=== PATIENT | female | born 1985 | race Caucasian/White ===

== ENCOUNTER 2017-01-06 17:49 | Emergency (ER) | payer MEDICAID ==
--- NOTE | 2017-01-06 19:27 | ER Document Report ---
HPI - HPI Patient complains to provider of: right shoulder pain Onset: Other - 2 days ago Quality of pain: Achy Severity: Severe Pain Level: 5 Context: Patient presents to the emergency department with complaints of right shoulder arm pain. She reports she has a history of shoulder surgery back in [place] [address] Cannon. She reports her shoulder kept becoming dislocated, that is why she had surgery. Patient reports 2 days ago she was walking out of work and thought someone was following her so she jerked her shoulder really quick and has had pain since that time. She reports the pain is throbbing and goes all the way down to her hand. She reports she's been taking her tramadol without relief of symptoms. Associated Symptoms: None Exacerbated by: Movement Relieved by: Denies Similar symptoms previously: Yes Recently seen / treated by doctor: No - REPRODUCTIVE Reproductive: DENIES: : - DERM Skin Color: Normal Past Medical History - General Information source: Patient Last Menstrual Period: 12/23/16 - Social History Smoking Status: Current Every Day Smoker Cigarette use (# per day): Yes Chew tobacco use (# tins/day): No Frequency of alcohol use: None Drug Abuse: None Occupation: [employer] Family History: None Patient has suicidal ideation: No Patient has homicidal ideation: No - Past Medical History Cardiac Medical History: Denies: Hx Coronary Artery Disease, Hx Heart Attack, Hx Hypertension Pulmonary Medical History: Denies: Hx Asthma, Hx Bronchitis, Hx COPD, Hx Pneumonia Neurological Medical History: Denies: Hx Cerebrovascular Accident, Hx Seizures Renal/ Medical History: Denies: Hx Peritoneal Dialysis Musculoskeltal Medical History: Denies Hx Arthritis, Reports Hx Musculoskeletal Trauma - shoulders dislocate, torn muscle Psychiatric Medical History: Reports: Hx Anxiety Denies: Hx Depression Past Surgical History: Reports: Hx Cholecystectomy, Hx Orthopedic Surgery - both knees, rt shoulder, Hx Tonsillectomy. Denies: Hx Hysterectomy - Immunizations Immunizations up to date: Yes Hx Diphtheria, Pertussis, Tetanus Vaccination: Yes Vertical Provider Document - CONSTITUTIONAL Agree With Documented VS: Yes Exam Limitations: No Limitations General Appearance: WD/WN, Mild Distress - Winces with passive and active movement of the right arm - INFECTION CONTROL TRAVEL OUTSIDE OF THE [place] IN LAST 30 DAYS: No - HEENT HEENT: Atraumatic, Normocephalic - NECK Neck: Normal Inspection, Supple - RESPIRATORY Respiratory: Breath Sounds Normal, No Respiratory Distress O2 Sat by Pulse Oximetry: 96 - CARDIOVASCULAR Cardiovascular: Regular Rate - MUSCULOSKELETAL/EXTREMETIES Musculoskeletal/Extremeties: MAEW, FROM, Tender - right upper arm ttp, no obvious deformity, good radial pulse. Brisk Cap refill no swelling no erythema no warmth - NEURO Level of Consciousness: Awake, Alert, Appropriate Motor/Sensory: No Motor Deficit - DERM Integumentary: Warm, Dry Adult Front & Back Diagram: 1 - c/o ttp Course - Re-evaluation Re-evalutation: 01/06/17 19:24 pt updated on pending xray - Vital Signs Vital signs: Temp Pulse Resp BP Pulse Ox 98.2 F 86 16 120/76 96 01/06/17 18:08 01/06/17 18:08 01/06/17 18:08 01/06/17 18:08 01/06/17 18:08 - Diagnostic Test Radiology reviewed: Image reviewed, Reports reviewed - IMPRESSION: NEGATIVE STUDY OF THE RIGHT SHOULDER. NO RADIOGRAPHIC EVIDENCE OF ACUTE INJURY. Discharge - Discharge Clinical Impression: Right shoulder pain Condition: Stable Disposition: HOME, SELF-CARE Instructions: Use of Drii-Unb-Btedqrg Ibuprofen ([facility]), Ultram ([facility]) Additional Instructions: *You have been evaluated for right shoulder pain *Apply lidocaine patches as prescribed *Rest/Ice/Elevate *Follow up with orthopedics for continued pain-call for an appointment *Take your pain medication as prescribed *Return to ED for worsening condition, changes, needs Prescriptions: Lidocaine [Lidoderm 5% (700 mg) Transdermal Patch] 1 patch TP DAILY #30 adh..patch Forms: Return to Work Referrals: TIGRE PHELPS MD [Primary Care Provider] - Follow up in 3-5 days
[2017-01-06 20:33] VITALS: BP 118/76
== END 2017-01-06 20:30 | disposition home or self-care (01) ==
LOC: ER 17:49
DX: M25.511 Pain in right shoulder (principal); Z98.890 Other specified postprocedural states; F17.210 Nicotine dependence, cigarettes, uncomplicated
CPT/HCPCS: 99283

== ENCOUNTER 2017-05-10 14:27 | Emergency (ER) | payer MEDICAID ==
[2017-05-10] MEDS ORDERED: TRIAMCINOLONE ACETONIDE INJ 40 MG/1 ML VIAL INJ ONE (15:16)
[2017-05-10] MEDS ORDERED: BUPIVACAINE HCL 0.75% INJ/PF (7.5 MG/1 ML) 10 ML SDV INJ ONE (15:17)
--- NOTE | 2017-05-10 15:23 | ER Document Report ---
HPI - HPI Pain Level: 5 Notes: Patient is a 31-year-old female presents the ED complaining of bilateral lateral elbow pain 1-2 weeks. 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 Patient states that she has been having issues gripping and holding onto items because of a feeling of loss of strength. Patient states that she has a soreness pain to her elbows. Patient states on occasion it feels like the pain will radiate down her forearm. Patient states that she does have a history of carpal tunnel syndrome without any release in the past. She has tried [id number] meds with minimal relief and conservative measures without any improvement. Denies any other significant past medical history. Denies any headache, fever, URI, sore throat, chest pain , palpitations, syncope, cough, shortness of breath, wheeze, dyspnea, abdominal pain, nausea/vomiting/diarrhea, muscle paralysis, or rash. - ROS Notes: REVIEW OF SYSTEMS: CONSTITUTIONAL : Denies fever, chills, or sweats. Denies recent illness. EENT: Denies eye, ear, throat, or mouth pain or symptoms. Denies nasal or sinus congestion or discharge. Denies throat, tongue, or mouth swelling or difficulty swallowing. CARDIOVASCULAR: Denies chest pain. Denies palpitations or racing or irregular heart beat. Denies ankle edema. RESPIRATORY: Denies cough, cold, or chest congestion. Denies shortness of breath, difficulty breathing, or wheezing. GASTROINTESTINAL: Denies abdominal pain or distention. Denies nausea, vomiting , or diarrhea. Denies blood in vomitus, stools, or per rectum. Denies black, tarry stools. Denies constipation. GENITOURINARY: Denies difficulty urinating, painful urination, burning, frequency, blood in urine, or discharge. MUSCULOSKELETAL: see hpi SKIN: Denies rash, lesions or sores. NEUROLOGICAL: Denies confusion or altered mental status. Denies passing out or loss of consciousness. Denies dizziness or lightheadedness. Denies headache. Denies weakness or paralysis or loss of use of either side. Denies problems with gait or speech. Denies sensory loss, numbness, or tingling. ALL OTHER SYSTEMS REVIEWED AND NEGATIVE. Dictation was performed using [employer] voice recognition software - CARDIOVASCULAR Cardiovascular: DENIES: Chest pain - REPRODUCTIVE Reproductive: DENIES: : - DERM Skin Color: Normal Past Medical History - Social History Smoking Status: Current Every Day Smoker Family History: None - Past Medical History Cardiac Medical History: Denies: Hx Coronary Artery Disease, Hx Heart Attack, Hx Hypertension Pulmonary Medical History: Denies: Hx Asthma, Hx Bronchitis, Hx COPD, Hx Pneumonia Neurological Medical History: Denies: Hx Cerebrovascular Accident, Hx Seizures Renal/ Medical History: Denies: Hx Peritoneal Dialysis Musculoskeltal Medical History: Denies Hx Arthritis, Reports Hx Musculoskeletal Trauma - shoulders dislocate, torn muscle Psychiatric Medical History: Reports: Hx Anxiety Denies: Hx Depression Past Surgical History: Reports: Hx Cholecystectomy, Hx Orthopedic Surgery - both knees, rt shoulder, Hx Tonsillectomy. Denies: Hx Hysterectomy - Immunizations Immunizations up to date: Yes Hx Diphtheria, Pertussis, Tetanus Vaccination: Yes Vertical Provider Document - CONSTITUTIONAL Agree With Documented VS: Yes Notes: PHYSICAL EXAMINATION: GENERAL: Well-appearing, well-nourished and in no acute distress. NECK: Normal range of motion, supple without lymphadenopathy. Non-tender. LUNGS: Breath sounds clear to auscultation bilaterally and equal. No wheezes rales or rhonchi. HEART: Regular rate and rhythm without murmurs, rubs, gallops. Musculoskeletal: Elbows b/l: FROM to passive/active. Strength 5+/5. Neg tinel to cubital tunnel. + tenderness to the lateral epicondyle points b/l. No erythema, swelling, ecchymosis, or deformity noted. No bony tenderness. N/V intact distal. Extremities: No cyanosis, clubbing, or edema b/l. Peripheral pulses 2+. Capillary refill less than 3 seconds. NEUROLOGICAL: Normal speech, normal gait. Normal sensory, motor exams PSYCH: Normal mood, normal affect. SKIN: Warm, Dry, normal turgor, no rashes or lesions noted. - INFECTION CONTROL TRAVEL OUTSIDE OF THE [place] IN LAST 30 DAYS: No - RESPIRATORY O2 Sat by Pulse Oximetry: 98 Course - Re-evaluation Re-evalutation: 05/10/17 15:55 Patient is an afebrile, well-hydrated, 31-year-old female who presents the ED with bilateral lateral epicondylitis. Vitals are stable. PE otherwise unremarkable at this time. Low suspicion for any septic joint, sepsis, necrotizing fasciitis, tenosynovitis, or fracture. Patient is aware that her condition can change from initial presentation and she needs to monitor symptoms closely and seek medical attention if any acute changes. Listed treatment options with the patient. Patient requested the steroid injections. Kenalog and Sensorcaine were injected into the lateral epicondyle areas bilaterally without any complications or blood loss. Patient's pain immediately improved corresponding to appropriate placement. I will send the patient home with a prescription for naproxen and Voltaren gel. Conservative measures otherwise for symptoms. Recheck with your PCM this week. Consider consult with physical therapy/orthopedics. Return to the ED with any worsening/ concerning symptoms otherwise as reviewed in discharge. Patient is in agreement. - Vital Signs Vital signs: Temp Pulse Resp BP Pulse Ox 97.5 F 69 18 115/65 98 05/10/17 14:33 05/10/17 14:33 05/10/17 14:33 05/10/17 14:33 05/10/17 14:33 Procedures - Additional Procedures trigger point injection Time performed: 15:45 Additional Procedures: Other - lateral epicond b/l injection with kenalog/ sensorcaine. Verbal consent obtained after risks/benefits/procedure reviewed. skin cleansed with iodine and alcohol swabs 1cc 40mg kenalog combined with 1.5cc sensorcaine 0.75% placed with 25g needle in 5cc syringe. pt tolerated procedure well w/o complications or blood loss bandaides placed Discharge - Discharge Clinical Impression: Lateral epicondylitis of both elbows Condition: Stable Disposition: HOME, SELF-CARE Instructions: Joint Steroid Injection ([facility]), Tennis Elbow (Lateral Epicondylitis) ([facility]) Additional Instructions: Rest, Ice, Compression, Elevation Tylenol/ibuprofen as needed Light stretches daily Strength exercises as able Moist heat and massage may help F/u with your PCP in 2-3 days for a recheck Consider consult(s) with Orthopedics/physical therapy for ongoing/worsening symptoms Return to the ED with any worsening symptoms and/or development of fever, headache, chest pain, palpitations, syncope, shortness of breath, trouble breathing, abdominal pain, n/v/d, muscle weakness/paralysis, numbness/tingling, swelling, redness, or other worsening symptoms that are concerning to you. Prescriptions: Diclofenac Sodium [Voltaren] 4 gm TP QID PRN #100 gel..gm. PRN Reason: Naproxen 500 mg PO BID PRN #30 tablet PRN Reason: Referrals: [facility] [Provider Group] - Follow up as needed
[2017-05-10 16:14] VITALS: BP 127/91
== END 2017-05-10 16:11 | disposition home or self-care (01) ==
LOC: ER 14:27
PROC: 3E0233Z Introduction of Anti-inflammatory into Muscle, Percutaneous Approach (ICD-10-PCS; principal; 2017-05-10)
PROC: 3E023BZ Introduction of Anesthetic Agent into Muscle, Percutaneous Approach (ICD-10-PCS; 2017-05-10)
DX: M77.11 Lateral epicondylitis, right elbow (principal); M77.12 Lateral epicondylitis, left elbow; M25.521 Pain in right elbow; M25.522 Pain in left elbow; F17.200 Nicotine dependence, unspecified, uncomplicated
CPT/HCPCS: 99283; 96374; 20552; J3490 ×2

== ENCOUNTER 2017-05-23 10:21 | Emergency (ER) | payer MEDICAID ==
[2017-05-23] MEDS ORDERED: KETOROLAC TROMETHAMINE INJ/PF 30 MG/1 ML SDV IV ONE (11:31)
[2017-05-23] MEDS ORDERED: DIPHENHYDRAMINE HCL 50 MG/ML VIAL IV ONE (11:32)
[2017-05-23] MEDS ORDERED: DEXAMETHASONE SOD PHOS INJ 10 MG/1 ML VIAL IV ONE (11:32)
[2017-05-23] MEDS ORDERED: METOCLOPRAMIDE HCL INJ/PF 10 MG/2 ML SDV IV ONE (11:33)
--- NOTE | 2017-05-23 11:36 | ER Document Report ---
ED Headache - General Chief Complaint: Headache Stated Complaint: HEADACHE Time Seen by Provider: 05/23/17 11:21 Notes: pt c/o frontal/temporal headache x 2h. pain is escalating. pulsatile. + photosensitivity. + nausea, no vomiting. no fever. no neck pain/stiffness similar headache 2 wks ago. pt admits to increased stress lately TRAVEL OUTSIDE OF THE [place] IN LAST 30 DAYS: No - HPI Onset: This morning Onset was: Gradual Timing: Worse Quality of pain: Stabbing, Throbbing Pain Level: 5 Preceding symptoms: Typical of prior aura(s) Associated symptoms: Nausea/vomiting. denies: Dizzy, Double/blurred vision, Fever, Motor/sensory loss to arm, Neck pain, Stiff neck Exacerbated by: Light, Movement Similar symptoms previously: Yes Recently seen / treated by doctor: Yes - 2 wks ago - Related Data Allergies/Adverse Reactions: Sulfa (Sulfonamide Antibiotics) Allergy (Verified 05/23/17 10:25) Hives adhesive tape Adverse Reaction (Intermediate, Verified 05/23/17 10:25) SKIN IRRITATION/REDNESS Past Medical History - General Information source: Patient - Social History Smoking Status: Current Every Day Smoker Chew tobacco use (# tins/day): No Frequency of alcohol use: None Drug Abuse: None Lives with: Family Family History: None - Past Medical History Cardiac Medical History: Denies: Hx Coronary Artery Disease, Hx Heart Attack, Hx Hypertension Pulmonary Medical History: Denies: Hx Asthma, Hx Bronchitis, Hx COPD, Hx Pneumonia Neurological Medical History: Denies: Hx Cerebrovascular Accident, Hx Seizures Renal/ Medical History: Denies: Hx Peritoneal Dialysis Musculoskeltal Medical History: Denies Hx Arthritis, Reports Hx Musculoskeletal Trauma - shoulders dislocate, torn muscle Psychiatric Medical History: Reports: Hx Anxiety Denies: Hx Depression Past Surgical History: Reports: Hx Cholecystectomy, Hx Orthopedic Surgery - both knees, rt shoulder, Hx Tonsillectomy. Denies: Hx Hysterectomy - Immunizations Immunizations up to date: Yes Hx Diphtheria, Pertussis, Tetanus Vaccination: Yes Review of Systems - Review of Systems Constitutional: No symptoms reported EENT: No symptoms reported Cardiovascular: No symptoms reported Respiratory: No symptoms reported Gastrointestinal: No symptoms reported Genitourinary: No symptoms reported Female Genitourinary: No symptoms reported Musculoskeletal: No symptoms reported Skin: No symptoms reported Hematologic/Lymphatic: No symptoms reported Neurological/Psychological: See HPI Physical Exam - Vital signs Vitals: Temp Pulse Resp BP Pulse Ox 97.8 F 73 16 122/71 100 05/23/17 10:25 05/23/17 10:25 05/23/17 10:25 05/23/17 10:25 05/23/17 10:25 Interpretation: Normal - General General appearance: Alert, Anxious In distress: Mild - uncomfortable - HEENT Head: Normocephalic, Atraumatic Eyes: Normal Conjunctiva: Normal Extraocular movements intact: Yes Pupils: PERRL Tympanic membrane: Normal Pharynx: Normal. No: Potential airway comprom. Neck: Supple - + suboccipital trapezius tenderness - Respiratory Respiratory status: No respiratory distress Chest status: Nontender Breath sounds: Normal Chest palpation: Normal - Cardiovascular Rhythm: Regular Heart sounds: Normal auscultation Murmur: No - Abdominal Inspection: Normal Distension: No distension Bowel sounds: Normal Tenderness: Nontender Organomegaly: No organomegaly - Back Back: Normal, Nontender - Extremities General upper extremity: Normal inspection, Nontender, Normal color, Normal ROM , Normal temperature General lower extremity: Normal inspection, Nontender, Normal color, Normal ROM , Normal temperature, Normal weight bearing. No: Too's sign - Neurological Neuro grossly intact: Yes Cognition: Normal Orientation: AAOx4 Cruz Coma Scale Eye Opening: Spontaneous Cruz Coma Scale Verbal: Oriented Cruz Coma Scale Motor: Obeys Commands Cruz Coma Scale Total: 15 Speech: Normal Motor strength normal: LUE, RUE, LLE, RLE Sensory: Normal - Psychological Associated symptoms: Normal affect, Normal mood - Skin Skin Temperature: Warm Skin Moisture: Dry Skin Color: Normal Course - Re-evaluation Re-evalutation: 05/23/17 11:37 pt is a healthy 31 yo female c/o 2h hx/o throbbing headache which started while working at [employer]. pt has had similar headaches in the past. pt has not taken any OTC for headache. low suspicion for meningitis, subdural bleed, CVA. pt is neurologically intact. VSS, afebrile 05/23/17 12:38 pt reports headache has improved. no neuro deficits. pt stable for discharge - Vital Signs Vital signs: Temp Pulse Resp BP Pulse Ox 97.8 F 73 16 122/71 100 05/23/17 10:25 05/23/17 10:25 05/23/17 10:25 05/23/17 10:25 05/23/17 10:25 Discharge - Discharge Clinical Impression: Headache Qualifiers: Headache type: unspecified Headache chronicity pattern: acute headache Intractability: not intractable Qualified Code(s): R51 - Headache Condition: Stable Disposition: HOME, SELF-CARE Instructions: Use of Diphenhydramine, Headache ([facility]), Reglan ([facility]), Toradol Injection ([facility]) Additional Instructions: if your headache returns, please take 2 Benadryl tablets + 1 phenergan tablet follow up with your primary care if headache persists Prescriptions: Promethazine HCl [Phenergan 25 mg Tablet] 25 mg PO Q6H PRN #20 tablet PRN Reason: Forms: Return to Work Referrals: TIGRE PHELPS MD [Primary Care Provider] - Follow up as needed
[2017-05-23 13:59] VITALS: BP 110/58
== END 2017-05-23 12:45 | disposition home or self-care (01) ==
LOC: ER 10:21
DX: R51 Headache (principal); F17.200 Nicotine dependence, unspecified, uncomplicated
CPT/HCPCS: 99283; 96374; 96375; J1200; J1885; J2765; J1100

== ENCOUNTER 2017-09-25 08:10 | Emergency (ER) | payer MEDICAID ==
--- NOTE | 2017-09-25 09:46 | ER Document Report ---
ED GI/ - General Chief Complaint: Vomiting Stated Complaint: VOMITING Time Seen by Provider: 09/25/17 09:04 Mode of Arrival: Ambulatory Information source: Patient Notes: 32-year-old female presents to ED for chronic nausea vomiting 2 weeks. She states she has only vomited one time today and she had a coffee before she also is drinking a [employer] soda right now Pulse in the pivot of it was 110. I rechecked her pulse and pulse ox while examining her her pulse ox is 99% and her pulse is 88. Patient states she has been nausea and vomiting cannot keep anything down. When asked to her meantime she has vomited today she said 1. As heavy time she vomited yesterday and was none. She states she thinks she may be because her last menstrual period was August 14. TRAVEL OUTSIDE OF THE [place] IN LAST 30 DAYS: No - HPI Patient complains to provider of: Missed/Late menses, Vomiting Onset: Other Timing/Duration: Intermittent - 2 weeks Quality of pain: Achy - Body aches Severity at maximum: Moderate Severity in ED: Moderate Pain Level: 3 Location: Other - Body aches Vaginal bleeding (Compared to normal period): None Menstrual period history: Missed LMP: 08/14/2017 Associated symptoms: Nausea, Vomiting, Other - Runny nose congestion postnasal drip Exacerbated by: Movement Relieved by: Denies Similar symptoms previously: Yes Recently seen / treated by doctor: No - Related Data Allergies/Adverse Reactions: Sulfa (Sulfonamide Antibiotics) Allergy (Verified 09/25/17 09:13) Hives adhesive tape Adverse Reaction (Intermediate, Verified 09/25/17 09:13) SKIN IRRITATION/REDNESS Past Medical History - General Information source: Patient - Social History Smoking Status: Current Every Day Smoker Cigarette use (# per day): Yes - 6 cigarettes/day none last 3 days Chew tobacco use (# tins/day): No Smoking Education Provided: Yes - 4 minutes Frequency of alcohol use: None Drug Abuse: None Occupation: None Lives with: Alone - With small son Family History: Arthritis, COPD, CVA, DM, Hyperlipidemia, Hypertension, Malignancy. denies: CAD, Thyroid Disfunction Patient has suicidal ideation: No Patient has homicidal ideation: No - Past Medical History Cardiac Medical History: Reports: None Pulmonary Medical History: Reports: None Neurological Medical History: Reports: None Endocrine Medical History: Reports: None Renal/ Medical History: Reports: None Malignancy Medical History: Reports: None GI Medical History: Reports: None Musculoskeltal Medical History: Reports Hx Musculoskeletal Trauma - shoulders dislocate, torn muscle Psychiatric Medical History: Reports: Hx Anxiety, Hx Depression Traumatic Medical History: Reports: None Infectious Medical History: Reports: None Past Surgical History: Reports: Hx Adenoidectomy, Hx Cholecystectomy, Hx Oral Surgery, Hx Orthopedic Surgery - both knees, rt shoulder, Hx Tonsillectomy - Immunizations Immunizations up to date: Yes Hx Diphtheria, Pertussis, Tetanus Vaccination: Yes Review of Systems - Review of Systems Constitutional: Recent illness EENT: Nose congestion, Nose discharge, Sinus pressure, Sinus discharge Cardiovascular: No symptoms reported Respiratory: No symptoms reported Gastrointestinal: Nausea, Vomiting Genitourinary: No symptoms reported Female Genitourinary: No symptoms reported Musculoskeletal: No symptoms reported Skin: No symptoms reported Hematologic/Lymphatic: No symptoms reported Neurological/Psychological: No symptoms reported -: Yes All other systems reviewed and negative Physical Exam - Vital signs Vitals: Temp Pulse Resp BP Pulse Ox 98.0 F 110 H 16 114/66 96 09/25/17 08:35 09/25/17 08:35 09/25/17 08:35 09/25/17 08:35 09/25/17 08:35 Interpretation: Normal - General General appearance: Appears well, Alert - HEENT Head: Normocephalic, Atraumatic Eyes: Normal Pupils: PERRL Ears: Normal External canal: Normal Tympanic membrane: Normal Nasal: Purulent discharge, Swelling Mouth/Lips: Normal Mucous membranes: Normal Pharynx: Post nasal drainage Neck: Normal - Respiratory Respiratory status: No respiratory distress Chest status: Nontender Breath sounds: Normal Chest palpation: Normal - Cardiovascular Rhythm: Regular Heart sounds: Normal auscultation Murmur: No - Abdominal Inspection: Normal Distension: No distension Bowel sounds: Normal Tenderness: Nontender Organomegaly: No organomegaly - Back Back: Normal, Nontender - Extremities General upper extremity: Normal inspection, Nontender, Normal color, Normal ROM , Normal temperature General lower extremity: Normal inspection, Nontender, Normal color, Normal ROM , Normal temperature, Normal weight bearing. No: Too's sign - Neurological Neuro grossly intact: Yes Cognition: Normal Orientation: AAOx4 [place] Coma Scale Eye Opening: Spontaneous [place] Coma Scale Verbal: Oriented Cruz Coma Scale Motor: Obeys Commands [place] Coma Scale Total: 15 Speech: Normal Motor strength normal: LUE, RUE, LLE, RLE Sensory: Normal - Psychological Associated symptoms: Normal affect, Normal mood - Skin Skin Temperature: Warm Skin Moisture: Dry Skin Color: Normal Course - Re-evaluation Re-evalutation: 09/25/17 10:30 Discussed labs with patient and written report given to patient. Patient was treated with vitamin B6 for her nausea. Patient was also given water to drink which she is taking without any difficulty. Her pulse is well under 100 respirations even and nonlabored patient states she will follow up with [facility]. - Vital Signs Vital signs: Temp Pulse Resp BP Pulse Ox 98.0 F 88 16 114/66 99 09/25/17 08:35 09/25/17 09:29 09/25/17 08:35 09/25/17 08:35 09/25/17 09:29 - Laboratory Laboratory results interpreted by me: 09/25/17 09:09 Urine Ascorbic Acid 20 H Urine HCG, Qual POSITIVE H Discharge - Discharge Clinical Impression: URI (upper respiratory infection) Qualifiers: URI type: unspecified URI Qualified Code(s): J06.9 - Acute upper respiratory infection, unspecified Qualifiers: Weeks of gestation: less than 8 weeks Qualified Code(s): Z3A.01 - Less than 8 weeks gestation of Condition: Stable Disposition: HOME, SELF-CARE Additional Instructions: You are . care is best started as early in as possible. If you're unsure about continuing this , you should discuss this with your physician or with [facility] worker at [facility]. You should take only medications approved by your physician. Acetaminophen can safely be taken for minor pains. As a rule, medication for chronic conditions such as asthma or seizures can safely be continued. You should discuss with the physician every medicine you take. Any regular exercise program can be continued. Talk to your physician, however, before engaging in competitive or demanding sports. Alcohol, smoking, and "street drugs" are dangerous to your baby. Cocaine is especially dangerous. Don't use any illicit drugs! UPPER RESPIRATORY ILLNESS: You have a viral infection of the respiratory passages -- a "cold." This common infection causes nasal congestion, drainage, and often sore throat and cough. It is highly contagious. The disease usually lasts about 10 to 14 days. There is no "cure" for the viral infection -- it must run its course. If there is a complication, such as bacterial infection in the nose, sinuses, middle ear, or bronchial tubes, antibiotics may be required. The antibiotics won't affect the virus. Drink plenty of fluids. A humidifier may help. An expectorant medication or decongestant may make you more comfortable. Use acetaminophen or ibuprofen for fever or aches. See the doctor if fever persists over two days, if there is any significant worsening of your symptoms, or if you simply fail to improve as expected. USE OF ACETAMINOPHEN (Tylenol): Acetaminophen may be taken for pain relief or fever control. It's much safer than aspirin, offering a wider range of "safe" dosages. It is safe during . Some brand names are Tylenol, Panadol, Datril, Anacin 3, Tempra, and Liquiprin. Acetaminophen can be repeated every four hours. The following are maximum recommended dosages: >89 pounds or adults 650 mg to 900 mg Acetaminophen can be repeated every four hours. Maximum dose not to exceed 4000 mg a day. SMOKING: If you smoke, you should stop smoking. The tar and chemicals in cigarette smoke are harmful. Smoking has been shown to cause: emphysema chronic bronchitis lung cancer mouth and throat cancer stomach and pancreas cancer premature aging defects In addition, smoking increases ear and lung infections in children of smokers. FOLLOW-UP CARE: If you have been referred to a physician for follow-up care, call the physician s office for an appointment as you were instructed or within the next two days. If you experience worsening or a significant change in your symptoms, notify the physician immediately or return to the Emergency Department at any time for re-evaluation. Referrals: TIGRE PHELPS MD [Primary Care Provider] - Follow up as needed [facility] [Provider Group] - Follow up as needed
[2017-09-25] MEDS ORDERED: PYRIDOXINE HCL 50 MG TABLET PO ONE ×2 (09:50→10:30)
[2017-09-25 10:23] LABS: APPEARANCE,URINE CLEAR; BILIRUBIN,URINE NEGATIVE (NEGATIVE); COLOR,URINE YELLOW; GLUCOSE, URINE NEGATIVE (NEGATIVE); KETONES,URINE NEGATIVE (NEGATIVE); LEUKOCYTE ESTERASE,URINE NEGATIVE (NEGATIVE); NITRITE,URINE NEGATIVE (NEGATIVE); PROTEIN,URINE NEGATIVE (NEGATIVE); URINE SPECIFIC GRAVITY 1.018; UROBILINOGEN,URINE NEGATIVE mg/dL (<2.0)
[2017-09-25 10:42] VITALS: BP 111/70
== END 2017-09-25 10:42 | disposition home or self-care (01) ==
LOC: ER 08:10
DX: O99.511 Diseases of the respiratory system complicating pregnancy, first trimester (principal); J06.9 Acute upper respiratory infection, unspecified; O21.9 Vomiting of pregnancy, unspecified; O99.331 Smoking (tobacco) complicating pregnancy, first trimester; F17.210 Nicotine dependence, cigarettes, uncomplicated; Z3A.01 Less than 8 weeks gestation of pregnancy; Z88.2 Allergy status to sulfonamides
CPT/HCPCS: 99406; 99284; 81025; 81001; J3490

== ENCOUNTER 2017-12-01 19:29 | Emergency (ER) | payer MEDICAID ==
[2017-12-01] MEDS ORDERED: NORMAL SALINE 1000 ML 1,000 ML IV ONE (20:21)
[2017-12-01] MEDS ORDERED: HYDROMORPHONE HCL INJ/PF 2 MG/ML AMPULE IV ONE ×2 (20:21→23:23)
--- NOTE | 2017-12-01 20:26 | ER Document Report ---
ED Medical Screen (RME) - General Mode of Arrival: Medic Information source: Patient TRAVEL OUTSIDE OF THE [place] IN LAST 30 DAYS: No - HPI Patient complains to provider of: Vaginal bleeding Onset: Other - see above Associated Symptoms: Other - see notes above - General Chief Complaint: Vaginal Bleeding Stated Complaint: VAGINAL BLEEDING Time Seen by Provider: 12/01/17 20:13 Notes: 32 year old female presents to the ED via EMS complaining of heavy vaginal bleeding that has been present for 1.5 months since having a miscarriage in October 2017 (patient was 6-8 weeks into ). Patient reports that she was given medication from the ED to take in order to help pass the miscarriage. Patient reports that this past week the bleeding has increased with it being exacerbated today at 0830. Patient reports she fainted in the bathroom today and she is using more than 1 pad per hour. Patient additionally reports lower back and abdominal pain. ([facility] [place]) - Related Data Allergies/Adverse Reactions: Sulfa (Sulfonamide Antibiotics) Allergy (Verified 11/13/17 09:14) Hives adhesive tape Adverse Reaction (Intermediate, Verified 11/13/17 09:14) SKIN IRRITATION/REDNESS Past Medical History - General Information source: Patient - Social History Family history: Reviewed & Not Pertinent - Past Medical History Cardiac Medical History: Denies: Hx Coronary Artery Disease, Hx Heart Attack, Hx Hypertension Pulmonary Medical History: Denies: Hx Asthma, Hx Bronchitis, Hx COPD, Hx Pneumonia Neurological Medical History: Denies: Hx Cerebrovascular Accident, Hx Seizures Renal/ Medical History: Denies: Hx Peritoneal Dialysis Musculoskeltal Medical History: Denies Hx Arthritis, Reports Hx Musculoskeletal Trauma - shoulders dislocate, torn muscle Psychiatric Medical History: Reports: Hx Anxiety, Hx Depression Past Surgical History: Reports: Hx Adenoidectomy, Hx Cholecystectomy, Hx Oral Surgery, Hx Orthopedic Surgery - both knees, rt shoulder, Hx Tonsillectomy. Denies: Hx Hysterectomy - Immunizations Immunizations up to date: Yes Hx Diphtheria, Pertussis, Tetanus Vaccination: Yes Review of Systems - Review of Systems Constitutional: No symptoms reported EENT: No symptoms reported Cardiovascular: No symptoms reported Respiratory: No symptoms reported Gastrointestinal: See HPI, Abdominal pain - lower Genitourinary: No symptoms reported Female Genitourinary: See HPI, Vaginal bleeding Musculoskeletal: Back pain - lower Skin: No symptoms reported Hematologic/Lymphatic: No symptoms reported Neurological/Psychological: No symptoms reported -: Yes All other systems reviewed and negative Physical Exam - General General appearance: Alert, Other - Appeals anxious and uncomfortable - Respiratory Respiratory status: Tachypnea - due to pain - Cardiovascular Rhythm: Regular, Tachycardia Heart sounds: Normal auscultation - Abdominal Inspection: Normal Bowel sounds: Normal Tenderness: Tender - suprapubic tenderness to palpation - Vital signs Vitals: Temp Pulse BP Pulse Ox 97.8 F 144 H 120/102 H 100 12/01/17 19:47 12/01/17 19:47 12/01/17 19:47 12/01/17 19:47 - Vital Signs Vital signs: Temp Pulse Resp BP Pulse Ox 97.8 F 144 H 120/102 H 100 12/01/17 19:47 12/01/17 19:47 12/01/17 19:47 12/01/17 19:47 Scribe Documentation - Scribe Written by Scrjimmy:: Serena Monk, 12/01/[id number] acting as scribe for :: Thuy
[2017-12-01 20:42] LABS: ABSOLUTE BASOPHILS # (AUTO) 0.1 10^3/uL (0.0-0.2); ABSOLUTE LYMPHOCYTES (AUTO) 2.1 10^3/uL (0.5-4.7); ABSOLUTE MONOCYTES (AUTO) 0.8 10^3/uL (0.1-1.4); ABSOLUTE NEUT (AUTO) 16.4 10^3/uL (1.7-8.2); BASOPHILS % (AUTO) 0.5 % (0-2); EOSINOPHILS % (AUTO) 0.2 % (0-6); HEMATOCRIT 36.3 % (36.0-47.0); HEMOGLOBIN 12.1 g/dL (12.0-15.5); LYMPHOCYTES % (AUTO) 10.9 % (13-45); MEAN CORPUSCULAR HEMOGLOBIN 29.5 pg (27.0-33.4); MEAN CORPUSCULAR HGB CONC 33.3 g/dL (32.0-36.0); MEAN CORPUSCULAR VOLUME 89 fl (80-97); MONOCYTES % (AUTO) 3.9 % (3-13); PLATELET COUNT 382 10^3/uL (150-450); RED BLOOD COUNT 4.09 10^6/uL (3.72-5.28); RED CELL DISTRIBUTION WIDTH 13.1 % (11.5-14.0); SEGMENTED NEUTROPHILS % (AUTO) 84.5 % (42-78); TOTAL CELLS COUNTED % (AUTO) 100 %; WHITE BLOOD COUNT 19.4 10^3/uL (4.0-10.5)
[2017-12-01 21:07] LABS: ALANINE AMINOTRANSFERASE 8 U/L (9-52); ALBUMIN 4.4 g/dL (3.5-5.0); ALKALINE PHOSPHATASE 87 U/L (38-126); ANION GAP 14 (5-19); ASPARTATE AMINO TRANSFERASE 34 U/L (14-36); BILIRUBIN,DIRECT 0.4 mg/dL (0.0-0.4); BILIRUBIN,TOTAL 0.5 mg/dL (0.2-1.3); BLOOD UREA NITROGEN 9 mg/dL (7-20); CALCIUM 9.8 mg/dL (8.4-10.2); CARBON DIOXIDE 23 mmol/L (22-30); CHLORIDE 104 mmol/L (98-107); GLUCOSE 119 mg/dL (75-110); POTASSIUM 3.6 mmol/L (3.6-5.0); SODIUM 140.8 mmol/L (137-145); TOTAL PROTEIN 6.7 g/dL (6.3-8.2)
--- NOTE | 2017-12-01 21:11 | ER Document Report ---
ED General - General Chief Complaint: Vaginal Bleeding Stated Complaint: VAGINAL BLEEDING Time Seen by Provider: 12/01/17 20:13 Mode of Arrival: Medic Notes: 32-year-old female patient with recent diagnosis of threatened miscarriage. Continues to have pelvic pain and cramping. Was seen here approximately will 3 weeks ago for the same. Has not had any follow-up. Has been bleeding for approximately 1 month. Patient was coming in with significant amount of pain in the pelvic region and bleeding. States that she is passing large amounts of blood clots. Patient was initially seen by triage physician. IV and labs were ordered. Fluid ordered. TRAVEL OUTSIDE OF THE [place] IN LAST 30 DAYS: No - HPI Onset/Duration: Gradual, Worse - Related Data Allergies/Adverse Reactions: Sulfa (Sulfonamide Antibiotics) Allergy (Verified 11/13/17 09:14) Hives adhesive tape Adverse Reaction (Intermediate, Verified 11/13/17 09:14) SKIN IRRITATION/REDNESS Past Medical History - General Information source: Patient - Social History Smoking Status: Never Smoker Frequency of alcohol use: None Drug Abuse: None Lives with: Family Family History: Arthritis, COPD, CVA, DM, Hyperlipidemia, Hypertension, Malignancy Patient has suicidal ideation: No Patient has homicidal ideation: No - Past Medical History Cardiac Medical History: Denies: Hx Coronary Artery Disease, Hx Heart Attack, Hx Hypertension Pulmonary Medical History: Denies: Hx Asthma, Hx Bronchitis, Hx COPD, Hx Pneumonia Neurological Medical History: Denies: Hx Cerebrovascular Accident, Hx Seizures Renal/ Medical History: Denies: Hx Peritoneal Dialysis Musculoskeltal Medical History: Denies Hx Arthritis, Reports Hx Musculoskeletal Trauma - shoulders dislocate, torn muscle Psychiatric Medical History: Reports: Hx Anxiety, Hx Depression Past Surgical History: Reports: Hx Adenoidectomy, Hx Cholecystectomy, Hx Oral Surgery, Hx Orthopedic Surgery - both knees, rt shoulder, Hx Tonsillectomy. Denies: Hx Hysterectomy - Immunizations Immunizations up to date: Yes Hx Diphtheria, Pertussis, Tetanus Vaccination: Yes Review of Systems - Review of Systems Constitutional: Malaise, Weakness. denies: Chills, Diaphoresis, Fever EENT: denies: Double vision, Difficulty swallowing, Mouth swelling Cardiovascular: Heart racing, Syncope. denies: Palpitations, Dyspnea, Edema Respiratory: denies: Cough, Hurts to breathe, Short of breath, Wheezing, Other Gastrointestinal: Abdominal pain. denies: Diarrhea, Nausea, Vomiting, Constipation Genitourinary: denies: Flank pain, Hematuria, Incontinence Female Genitourinary: , Heavy/abnormal periods, Vaginal bleeding Musculoskeletal: denies: Back pain, Gout, Joint pain Skin: denies: Lesions, Lumps, Rash Hematologic/Lymphatic: denies: Anemia, Blood clots, Easy bleeding, Easy bruising Neurological/Psychological: denies: Confusion, Weakness, Numbness Physical Exam - Vital signs Vitals: Temp Pulse BP Pulse Ox 97.8 F 144 H 120/102 H 100 12/01/17 19:47 12/01/17 19:47 12/01/17 19:47 12/01/17 19:47 Interpretation: Tachycardic - General General appearance: Appears well, Alert - HEENT Head: Normocephalic, Atraumatic Eyes: Normal Pupils: PERRL - Respiratory Respiratory status: No respiratory distress Chest status: Nontender Breath sounds: Normal Chest palpation: Normal - Cardiovascular Rhythm: Tachycardia Heart sounds: Normal auscultation Murmur: No - Abdominal Inspection: Normal Distension: No distension Bowel sounds: Normal Tenderness: Other - Tenderness to palpation lower pelvic/lower abdomen Organomegaly: No organomegaly - Genitourinary External exam: Normal Speculum exam: Cervix open. No: Products of conception Vaginal bleeding: Moderate [place] exam: No: Uterus enlarged - Back Back: Normal, Nontender - Extremities General upper extremity: Normal inspection, Nontender, Normal color, Normal ROM , Normal temperature General lower extremity: Normal inspection, Nontender, Normal color, Normal ROM , Normal temperature, Normal weight bearing. No: Too's sign - Neurological Neuro grossly intact: Yes Cognition: Normal Orientation: AAOx4 [place] Coma Scale Eye Opening: Spontaneous [place] Coma Scale Verbal: Oriented [place] Coma Scale Motor: Obeys Commands [place] Coma Scale Total: 15 Speech: Normal Motor strength normal: LUE, RUE, LLE, RLE Sensory: Normal - Psychological Associated symptoms: Normal affect, Normal mood - Skin Skin Temperature: Warm Skin Moisture: Dry Skin Color: Normal Course - Re-evaluation Re-evalutation: 12/01/17 23:08 Obstetrics Ultrasound 12/01/17 23:24 IMPRESSION: 1. Thickened heterogeneous endometrium. No gestational sac identified. Beta hCG is too low to visualize . Given history of miscarriage retained products of conception cannot completely be excluded. Differential considerations include miscarriage, early normal , or ectopic . No other sonographic evidence of ectopic at this time. Close continued clinical, laboratory, and sonographic follow-up recommended. Laboratory 12/01/17 12/01/17 12/01/17 18:58 20:29 20:29 WBC 19.4 H RBC 4.09 Hgb 12.1 Hct 36.3 MCV 89 MCH 29.5 MCHC 33.3 RDW 13.1 Plt Count 382 Seg Neutrophils % 84.5 H Lymphocytes % 10.9 L Monocytes % 3.9 Eosinophils % 0.2 Basophils % 0.5 Absolute Neutrophils 16.4 H Absolute Lymphocytes 2.1 Absolute Monocytes 0.8 Absolute Eosinophils 0.0 Absolute Basophils 0.1 Sodium 140.8 Cancelled Potassium 3.6 Cancelled Chloride 104 Cancelled Carbon Dioxide 23 Cancelled Anion Gap 14 Cancelled BUN 9 Cancelled Creatinine 0.72 Cancelled Est GFR ( Amer) > 60 Cancelled Est GFR (Non-Af Amer) > 60 Cancelled Glucose 119 H Cancelled Lactic Acid Calcium 9.8 Cancelled Total Bilirubin 0.5 Cancelled Direct Bilirubin 0.4 Cancelled Neonat Total Bilirubin Not Reportable Cancelled Neonat Direct Bilirubin Not Reportable Cancelled Neonat Indirect Bili Not Reportable Cancelled AST 34 Cancelled ALT 8 L Cancelled Alkaline Phosphatase 87 Cancelled Total Protein 6.7 Cancelled Albumin 4.4 Cancelled Beta HCG, Quant 44.18 H Cancelled Total Beta HCG POSITIVE Cancelled Urine Color Urine Appearance Urine pH Ur Specific [place] Urine Protein Urine Glucose (UA) Urine Ketones Urine Blood Urine Nitrite Urine Bilirubin Urine Urobilinogen Ur Leukocyte Esterase Urine WBC (Auto) Urine RBC (Auto) U Hyaline Cast (Auto) Squamous Epi Cells Auto Amorphous Sediment Auto Urine Mucus (Auto) Urine Ascorbic Acid 12/01/17 12/01/17 21:30 22:37 WBC RBC Hgb Hct MCV MCH MCHC RDW Plt Count Seg Neutrophils % Lymphocytes % Monocytes % Eosinophils % Basophils % Absolute Neutrophils Absolute Lymphocytes Absolute Monocytes Absolute Eosinophils Absolute Basophils Sodium Potassium Chloride Carbon Dioxide Anion Gap BUN Creatinine Est GFR ( Amer) Est GFR (Non-Af Amer) Glucose Lactic Acid 1.6 Calcium Total Bilirubin Direct Bilirubin Neonat Total Bilirubin Neonat Direct Bilirubin Neonat Indirect Bili AST ALT Alkaline Phosphatase Total Protein Albumin Beta HCG, Quant Total Beta HCG Urine Color YELLOW Urine Appearance CLEAR Urine pH 7.0 Ur Specific [place] 1.010 Urine Protein NEGATIVE Urine Glucose (UA) NEGATIVE Urine Ketones NEGATIVE Urine Blood LARGE H Urine Nitrite NEGATIVE Urine Bilirubin NEGATIVE Urine Urobilinogen NEGATIVE Ur Leukocyte Esterase SMALL H Urine WBC (Auto) 25 Urine RBC (Auto) >182 U Hyaline Cast (Auto) 1 Squamous Epi Cells Auto 1 Amorphous Sediment Auto TRACE Urine Mucus (Auto) FEW Urine Ascorbic Acid NEGATIVE 12/01/17 23:25 Patient with elevated WBC count, large amount of vaginal bleeding at the bedside commode with possible products of conception. Has had previous ultrasound which was inconclusive. Has not been seen in 3 weeks. States that she has been bleeding for 3 weeks with increasing pain. States that she cannot take the pain anymore. Requesting a hysterectomy or a D&C or what ever can be done in order to remove what is in there. HCG levels in the 40 so unlikely she has anything further but would like to repeat ultrasound at this time. 12/02/17 00:[address] Frost with [facility]. Recommends giving patient Methergine and Provera and have patient follow-up on Sunday with [facility] for scheduling and possible D&C. First dose of Provera Methergine given in the ED. Patient is resting comfortably at this time. In no acute distress. 12/02/17 00:32 - Vital Signs Vital signs: Temp Pulse Resp BP Pulse Ox 97.8 F 144 H 120/102 H 100 12/01/17 19:47 12/01/17 19:47 12/01/17 19:47 12/01/17 19:47 - Laboratory Result Diagrams: 12/01/17 20:29 12/01/17 20:29 Laboratory results interpreted by me: 12/01/17 12/01/17 12/01/17 18:58 20:29 22:37 WBC 19.4 H Seg Neutrophils % 84.5 H Lymphocytes % 10.9 L Absolute Neutrophils 16.4 H Glucose 119 H ALT 8 L Beta HCG, Quant 44.18 H Urine Blood LARGE H Ur Leukocyte Esterase SMALL H Discharge - Discharge Clinical Impression: , missed Condition: Good Disposition: HOME, SELF-CARE Instructions: Miscarriage ([facility]) Additional Instructions: Please call the [facility] office number provided below to schedule urgent follow- up. In the event that you are having worsening pain or bleeding, passing out again or any other concerns please return immediately. Please take the medications as prescribed. This will help in the bleeding. Please expect that he will continue to have some bleeding as well as cramping. Short course of pain medication has been provided for you. Any further pain medication will need to be prescribed by your [facility]/specialist. Prescriptions: Medroxyprogesterone Acet [Provera 10 Mg Tablet] 10 mg PO DAILY 3 Days #3 tablet Methylergonovine Maleate [Methergine 0.2 Mg Tablet] 0.2 mg PO TID 3 Days #9 tablet Referrals: [facility] [Provider Group] - 12/03/17 8:00 am
[2017-12-01 23:02] LABS: AMORPHOUS SEDIMENT,URINE TRACE /HPF; APPEARANCE,URINE CLEAR; BILIRUBIN,URINE NEGATIVE (NEGATIVE); COLOR,URINE YELLOW; GLUCOSE, URINE NEGATIVE (NEGATIVE); KETONES,URINE NEGATIVE (NEGATIVE); LEUKOCYTE ESTERASE,URINE SMALL (NEGATIVE); NITRITE,URINE NEGATIVE (NEGATIVE); PROTEIN,URINE NEGATIVE (NEGATIVE); UROBILINOGEN,URINE NEGATIVE mg/dL (<2.0)
[2017-12-01] MEDS ORDERED: KETOROLAC TROMETHAMINE INJ/PF 30 MG/1 ML SDV IV ONE (23:23)
[2017-12-01] MEDS ORDERED: HYDROCODONE/ACETAMINOPHEN 5-325 MG (6 TAB/ER DISP) PO PRN (23:36)
[2017-12-02] MEDS ORDERED: MEDROXYPROGESTERONE ACET 10 MG TABLET PO ONE (00:05)
[2017-12-02] MEDS ORDERED: METHYLERGONOVINE MALEATE 0.2 MG TABLET PO ONE (00:05)
--- NOTE | 2017-12-02 00:29 | RADIOLOGY REPORT (SQ) ---
EXAM DESCRIPTION: U/S OB TRANSVAGINAL W/O DOP CLINICAL HISTORY: 32 years Female, Large amount of vaginal bleeding, positive hCG. Beta hCG of 44.18. Previous miscarriage 11/13/2017 COMPARISON: None. TECHNIQUE: Complete transvaginal pelvic ultrasound. FINDINGS: Uterus measures 10.4 x 5.2 x 6.8 cm. Endometrial thickness of 1.8 cm. The endometrium is heterogeneous. No myometrial abnormalities. No free pelvic fluid. Cervical length of 4.2 cm and closed. The right ovary measures 1.4 x 2.4 x 2.6 cm. The left ovary measures 3.2 x 2.7 x 2.1 cm. Limited color and spectral Doppler images demonstrate flow within the ovaries bilaterally. IMPRESSION: 1. Thickened heterogeneous endometrium. No gestational sac identified. Beta hCG is too low to visualize . Given history of miscarriage retained products of conception cannot completely be excluded. Differential considerations include miscarriage, early normal , or ectopic . No other sonographic evidence of ectopic at this time. Close continued clinical, laboratory, and sonographic follow-up recommended.
[2017-12-02 00:54] VITALS: BP 108/73
== END 2017-12-02 01:10 | disposition home or self-care (01) ==
LOC: ER 19:29
DX: O02.1 Missed abortion (principal); R10.2 Pelvic and perineal pain; R53.81 Other malaise; R53.1 Weakness; R00.0 Tachycardia, unspecified; Z88.2 Allergy status to sulfonamides
CPT/HCPCS: 96376; 99284; 96361; 96374; 96375; 36415; 84702; 85025; 80053; 81001; 83605; 76817; J3490 ×2; J1885; J1170; J7030

== ENCOUNTER 2017-12-22 12:04 | Emergency (ER) | payer MEDICAID ==
--- NOTE | 2017-12-22 12:29 | ER Document Report ---
ED Seizure - General Chief Complaint: Probable Seizure Stated Complaint: POSSIBLE SEIZURE, RIGHT SHOULDER PAIN Time Seen by Provider: 12/22/17 12:29 Mode of Arrival: Ambulatory Information source: Patient Notes: 32-year-old lady with past medical history anxiety who chronically takes diazepam 10 mg daily for multiple years presented today for evaluation of a seizure. According to patient she was at work and sustained a seizure and fell on her right shoulder. Patient denies any prior history of seizure disorder. Patient ran out of her benzodiazepines approximately 3 days ago. Patient now is awake and oriented. Patient reported that she did not feel this morning and was shaky. Patient denies any headache, nausea vomiting, fevers or chills. Patient complains of the right shoulder, achy, worse with movement, severity of symptoms a 6 out of 10. - Related Data Allergies/Adverse Reactions: Sulfa (Sulfonamide Antibiotics) Allergy (Verified 11/13/17 09:14) Hives adhesive tape Adverse Reaction (Intermediate, Verified 11/13/17 09:14) SKIN IRRITATION/REDNESS Past Medical History - General Information source: Patient - Social History Smoking Status: Current Every Day Smoker Family History: Arthritis, COPD, CVA, DM, Hyperlipidemia, Hypertension, Malignancy - Past Medical History Cardiac Medical History: Denies: Hx Coronary Artery Disease, Hx Heart Attack, Hx Hypertension Pulmonary Medical History: Denies: Hx Asthma, Hx Bronchitis, Hx COPD, Hx Pneumonia Neurological Medical History: Denies: Hx Cerebrovascular Accident, Hx Seizures Renal/ Medical History: Denies: Hx Peritoneal Dialysis Musculoskeltal Medical History: Denies Hx Arthritis, Reports Hx Musculoskeletal Trauma - shoulders dislocate, torn muscle Psychiatric Medical History: Reports: Hx Anxiety, Hx Depression Past Surgical History: Reports: Hx Adenoidectomy, Hx Cholecystectomy, Hx Oral Surgery, Hx Orthopedic Surgery - both knees, rt shoulder, Hx Tonsillectomy. Denies: Hx Hysterectomy - Immunizations Immunizations up to date: Yes Hx Diphtheria, Pertussis, Tetanus Vaccination: Yes Review of Systems - Review of Systems Notes: REVIEW OF SYSTEMS: CONSTITUTIONAL: -fevers, -chills EENT: -eye pain, -difficulty swallowing, -nasal congestion CARDIOVASCULAR: -chest pain, -syncope, + dizziness RESPIRATORY: -cough, -SOB GASTROINTESTINAL: -abdominal pain, -nausea, -vomiting, -diarrhea GENITOURINARY: -dysuria, -hematuria MUSCULOSKELETAL: -back pain, -neck pain SKIN: -rash or skin lesions. HEMATOLOGIC: -easy bruising or bleeding. LYMPHATIC: -swollen, enlarged glands. NEUROLOGICAL: -altered mental status or loss of consciousness, -headache, + seizure PSYCHIATRIC: -anxiety, -depression. ALL OTHER SYSTEMS REVIEWED AND NEGATIVE. Physical Exam - Vital signs Vitals: Resp 18 12/22/17 12:27 - Notes Notes: Reviewed vital signs and nursing note as charted by RN. CONSTITUTIONAL: Alert and oriented and responds appropriately to questions HEAD: Normocephalic EYES: PERRL; Conjunctivae clear, sclerae non-icteric ENT: normal nose; no rhinorrhea; moist mucous membranes; pharynx without lesions noted NECK: Supple without meningismus; non-tender; no cervical lymphadenopathy, no masses CARD: Regular rate and rhythm; no murmurs, no clicks, no rubs, no gallops; symmetric distal pulses RESP: Normal chest excursion without splinting or tachypnea; breath sounds clear and equal bilaterally ABD/GI: Normal bowel sounds; non-distended; soft, BACK: The back appears normal and is non-tender to palpation EXT: Right shoulder examination without any obvious deformity, shoulder appears to be in good position, patient has mild limitation range of motion secondary to pain, radial pulses are palpable, sensation is present in all the dermatomes of the upper extremity SKIN: Normal color for age and race; warm; dry; good turgor; capillary refill < 2 seconds; no acute lesions noted NEURO: Cranial nerves 3-12 intact. Motor strength 5/5 bilaterally. Sensation intact to touch bilaterally. No pronator drift. Finger to nose intact bilaterally PSYCH: The patient's mood and manner are appropriate. Grooming and personal hygiene are appropriate. Course - Re-evaluation Re-evalutation: 32-year-old with chronic benzodiazepine use presented today for evaluation of a seizure Patient ran out of her medications 3 days ago Differential diagnoses includes benzodiazepine seizure withdrawal, intracranial hemorrhage or subdural hematoma, dehydration, electrolyte abnormalities, syncope , arrhythmia, We will obtain basic lab work including CBC, BMP, urinalysis, urine test, urine toxicology screen CT head without contrast, right shoulder film EKG, troponin IV fluids Reassess patient 12/22/17 16:08 Reassessment 4 PM Patient has acidosis as well as anion gap, consistent with seizure Patient on out of her diazepam for past 3 days, patient takes 10 mg daily We will give patient her diazepam as well as another liter of IV fluids, will repeat lab work after IV hydration Reassess 12/22/17 18:35 - Vital Signs Vital signs: Temp Pulse Resp BP Pulse Ox 15 115/72 98 12/22/17 15:25 12/22/17 15:25 12/22/17 15:25 - Laboratory Result Diagrams: 12/22/17 11:37 12/22/17 11:37 Laboratory results interpreted by me: 12/22/17 12/22/17 12/22/17 11:37 11:37 15:35 Hgb 10.6 L Hct 32.2 L Carbon Dioxide 15 L Anion Gap 22 H Urine Blood MODERATE H - Diagnostic Test Radiology reviewed: Image reviewed - CT scan of her brain did not reveal any acute intracranial pathology Right shoulder film without any acute fracture or dislocation - EKG Interpretation by Me Additional EKG results interpreted by me: 12/22/17 18:37 EKG interpretation was performed at 2 PM Sinus rhythm, rate 90 Normal TX interval, narrow QRS, QTC [address] elevations or depressions in any of the leads Discharge - Discharge Clinical Impression: Benzocaine adverse reaction, Seizure Condition: Stable Disposition: HOME, SELF-CARE Additional Instructions: You have been diagnosed with seizure today Likely etiology of her seizure is withdrawal of benzodiazepine use Please follow-up with your primary care physician for refill of your prescription or discussion of other medications that can treat your anxiety Please come back if it worsening headache, nausea vomiting, chest pain or shortness of breath your CT scan did not reveal any evidence of brain malignancy or bleeding Your shoulder films did not reveal any fracture dislocation Prescriptions: Diazepam 10 mg PO DAILY #10 tablet Forms: Return to Work Referrals: TIGRE PHELPS MD [Primary Care Provider] - Follow up in 3-5 days
[2017-12-22] MEDS ORDERED: OXYCODONE-ACETAMINOPHEN 5-325 MG TABLET PO ONE (13:31)
[2017-12-22] MEDS ORDERED: NORMAL SALINE 1000 ML 1,000 ML IV ONE ×2 (13:32→16:08)
[2017-12-22 13:39] LABS: ABSOLUTE LYMPHOCYTES (AUTO) 2.6 10^3/uL (0.5-4.7); ABSOLUTE MONOCYTES (AUTO) 0.4 10^3/uL (0.1-1.4); ABSOLUTE NEUT (AUTO) 5.8 10^3/uL (1.7-8.2); BASOPHILS % (AUTO) 0.5 % (0-2); EOSINOPHILS % (AUTO) 0.4 % (0-6); HEMATOCRIT 32.2 % (36.0-47.0); HEMOGLOBIN 10.6 g/dL (12.0-15.5); LYMPHOCYTES % (AUTO) 29.1 % (13-45); MEAN CORPUSCULAR HEMOGLOBIN 28.6 pg (27.0-33.4); MEAN CORPUSCULAR VOLUME 87 fl (80-97); MONOCYTES % (AUTO) 4.4 % (3-13); PLATELET COUNT 370 10^3/uL (150-450); RED BLOOD COUNT 3.72 10^6/uL (3.72-5.28); RED CELL DISTRIBUTION WIDTH 13.2 % (11.5-14.0); SEGMENTED NEUTROPHILS % (AUTO) 65.6 % (42-78); TOTAL CELLS COUNTED % (AUTO) 100 %; WHITE BLOOD COUNT 8.8 10^3/uL (4.0-10.5)
[2017-12-22 13:47] LABS: ALANINE AMINOTRANSFERASE 30 U/L (9-52); ALBUMIN 4.5 g/dL (3.5-5.0); ALKALINE PHOSPHATASE 42 U/L (38-126); ASPARTATE AMINO TRANSFERASE 30 U/L (14-36); BILIRUBIN,DIRECT 0.2 mg/dL (0.0-0.4); BILIRUBIN,TOTAL 0.3 mg/dL (0.2-1.3); BLOOD UREA NITROGEN 16 mg/dL (7-20); CALCIUM 9.4 mg/dL (8.4-10.2); CHLORIDE 106 mmol/L (98-107); GLUCOSE 99 mg/dL (75-110); SODIUM 142.9 mmol/L (137-145); TOTAL PROTEIN 6.7 g/dL (6.3-8.2)
[2017-12-22 13:48] LABS: ALCOHOL < 10 mg/dL (NONE DETECTED)
[2017-12-22 13:52] LABS: CARBON DIOXIDE 15 mmol/L (22-30)
[2017-12-22 13:53] LABS: ANION GAP 22 (5-19)
--- NOTE | 2017-12-22 14:36 | RADIOLOGY REPORT (SQ) ---
EXAM DESCRIPTION: SHOULDER RIGHT 2 OR MORE VIEWS COMPLETED DATE/TIME: 12/22/2017 2:20 pm REASON FOR STUDY: pain COMPARISON: None. NUMBER OF VIEWS: Three views. TECHNIQUE: Internal rotation, external rotation, and Y view images acquired of the right shoulder. LIMITATIONS: None. FINDINGS: MINERALIZATION: Normal. BONES: No acute fracture or dislocation. No worrisome bone lesions. JOINTS: No dislocation. VISUALIZED LUNGS AND RIBS: No pneumothorax. No rib fracture. SOFT TISSUES: No radiopaque foreign body. OTHER: No other significant finding. IMPRESSION: NEGATIVE STUDY OF THE RIGHT SHOULDER. NO RADIOGRAPHIC EVIDENCE OF ACUTE INJURY. TECHNICAL DOCUMENTATION: JOB ID: [id number] [email or web address]- All Rights Reserved Reading location - IP/workstation name: [email or web address]
--- NOTE | 2017-12-22 14:57 | EKG REPORT ---
SEVERITY:- NORMAL ECG - SINUS RHYTHM : Confirmed by: Gian Sky MD 22-Dec-2017 14:57:15
--- NOTE | 2017-12-22 15:03 | RADIOLOGY REPORT (SQ) ---
EXAM DESCRIPTION: CT HEAD WITHOUT COMPLETED DATE/TIME: 12/22/2017 2:23 pm REASON FOR STUDY: seizure COMPARISON: None. TECHNIQUE: Axial images acquired through the brain without intravenous contrast. Images reviewed wi th bone, brain and subdural windows. Additional sagittal and coronal reconstructions were generated. Images stored on PACS. All CT scanners at this facility use dose modulation, iterative reconstruction, and/or weight based d osing when appropriate to reduce radiation dose to as low as reasonably achievable (ALARA). [facility]: Dose Right [facility]: CareDose [facility]: Dose Right [facility]: Teradose 4D [facility]: GloNav RADIATION DOSE: CT Rad equipment meets quality standard of care and radiation dose reduction techniq ues were employed. CTDIvol: 53.2 mGy. DLP: 1044 mGy-cm. mGy. LIMITATIONS: None. FINDINGS: VENTRICLES: Normal size and contour. CEREBRUM: No masses. No hemorrhage. No midline shift. No evidence for acute infarction. Normal gra y/white matter differentiation. No areas of low density in the white matter. CEREBELLUM: No masses. No hemorrhage. No alteration of density. No evidence for acute infarction. EXTRAAXIAL SPACES: No fluid collections. No masses. ORBITS AND GLOBE: No intra- or extraconal masses. Normal contour of globe without masses. CALVARIUM: No fracture. PARANASAL SINUSES: No fluid or mucosal thickening. SOFT TISSUES: No mass or hematoma. OTHER: No other significant finding. IMPRESSION: NORMAL BRAIN CT WITHOUT CONTRAST. EVIDENCE OF ACUTE STROKE: NO. COMMENT: Quality ID # [id number]: Final reports with documentation of one or more dose reduction techniques (e.g., Automated exposure control, adjustment of the mA and/or kV according to patient size, use of iterative reconstruction technique) TECHNICAL DOCUMENTATION: JOB ID: [id number] [employer]- All Rights Reserved Reading location - IP/workstation name: [email or web address]
[2017-12-22 16:04] LABS: APPEARANCE,URINE CLEAR; BILIRUBIN,URINE NEGATIVE (NEGATIVE); COLOR,URINE YELLOW; GLUCOSE, URINE NEGATIVE (NEGATIVE); KETONES,URINE NEGATIVE (NEGATIVE); LEUKOCYTE ESTERASE,URINE NEGATIVE (NEGATIVE); NITRITE,URINE NEGATIVE (NEGATIVE); PROTEIN,URINE NEGATIVE (NEGATIVE); URINE SPECIFIC GRAVITY 1.015; UROBILINOGEN,URINE NEGATIVE mg/dL (<2.0)
[2017-12-22] MEDS ORDERED: DIAZEPAM 5 MG TABLET PO ONE (16:09)
[2017-12-22 16:12] LABS: URINE AMPHETAMINES SCREEN NEGATIVE; URINE BARBITURATES SCREEN NEGATIVE; URINE BENZODIAZEPINES SCREEN UNCONFIRMED POSITIVE; URINE COCAINE SCREEN NEGATIVE; URINE MARIJUANA (THC) SCREEN UNCONFIRMED POSITIVE; URINE METHADONE SCREEN NEGATIVE; URINE PHENCYCLIDINE SCREEN NEGATIVE
[2017-12-22 18:38] LABS: ANION GAP 6 (5-19); BLOOD UREA NITROGEN 14 mg/dL (7-20); CALCIUM 7.2 mg/dL (8.4-10.2); CARBON DIOXIDE 23 mmol/L (22-30); CHLORIDE 113 mmol/L (98-107); GLUCOSE 90 mg/dL (75-110); POTASSIUM 3.4 mmol/L (3.6-5.0); SODIUM 141.9 mmol/L (137-145)
[2017-12-22 19:01] VITALS: BP 111/73
== END 2017-12-22 19:01 | disposition home or self-care (01) ==
LOC: ER 12:04
DX: T41.3X5A Adverse effect of local anesthetics, initial encounter (principal); R56.9 Unspecified convulsions; M25.511 Pain in right shoulder; W18.30XA Fall on same level, unspecified, initial encounter; Z88.2 Allergy status to sulfonamides; Z90.49 Acquired absence of other specified parts of digestive tract
CPT/HCPCS: 93005; 99285; 96360; 96361; 36415; 80307 ×2; 85025; 81025; 80048; 80053; 81001; 84484; 73030; 70450; 93010; J3490; J7030

== ENCOUNTER 2018-02-12 17:06 | Emergency (ER) | payer MEDICAID ==
[2018-02-12] MEDS ORDERED: ONDANSETRON 4 MG TAB.RAPDIS PO ONE (17:18)
[2018-02-12] MEDS ORDERED: ACETAMINOPHEN 325 MG TABLET PO ONE (17:19)
--- NOTE | 2018-02-12 17:21 | ER Document Report ---
ED Medical Screen (RME) - General Chief Complaint: Urinary Problem Stated Complaint: ABDOMINAL PAIN Notes: RAPID MEDICAL EVALUATION DISCLOSURE I have seen this patient as part of a Rapid Medical Evaluation and, if applicable, placed any initially appropriate orders. The patient will be seen and fully evaluated, including a full history and physical exam, by a provider ( in Main ED or Fast Track) when a room becomes available. 32-year-old female here with complaints of left lower back/flank pain dysuria hematuria foul-smelling urine nausea ongoing for the past 2 days. She has a history of kidney infections many many years ago as a child. She does not remember her last menstrual period however she is on the "-control shot". Patient does not know her usual blood pressure measurements but states "they are usually normal". EXAM No appreciable abdominal TTP Mild left CVA TTP TRAVEL OUTSIDE OF THE [place] IN LAST 30 DAYS: No - Related Data Allergies/Adverse Reactions: Sulfa (Sulfonamide Antibiotics) Allergy (Verified 02/12/18 17:19) Hives adhesive tape Adverse Reaction (Intermediate, Verified 02/12/18 17:19) SKIN IRRITATION/REDNESS Past Medical History - Social History Frequency of alcohol use: Occasional Drug Abuse: None Family history: Reviewed & Not Pertinent - Past Medical History Cardiac Medical History: Denies: Hx Coronary Artery Disease, Hx Heart Attack, Hx Hypertension Pulmonary Medical History: Denies: Hx Asthma, Hx Bronchitis, Hx COPD, Hx Pneumonia Neurological Medical History: Denies: Hx Cerebrovascular Accident, Hx Seizures Renal/ Medical History: Denies: Hx Peritoneal Dialysis Musculoskeltal Medical History: Denies Hx Arthritis, Reports Hx Musculoskeletal Trauma - shoulders dislocate, torn muscle Psychiatric Medical History: Reports: Hx Anxiety, Hx Depression Past Surgical History: Reports: Hx Adenoidectomy, Hx Cholecystectomy, Hx Oral Surgery, Hx Orthopedic Surgery - both knees, rt shoulder, Hx Tonsillectomy. Denies: Hx Hysterectomy - Immunizations Immunizations up to date: Yes Hx Diphtheria, Pertussis, Tetanus Vaccination: Yes Physical Exam - Vital signs Vitals: Temp Pulse Resp BP Pulse Ox 99.1 F 93 18 89/68 L 97 02/12/18 17:10 02/12/18 17:10 02/12/18 17:10 02/12/18 17:10 02/12/18 17:10 Course - Vital Signs Vital signs: Temp Pulse Resp BP Pulse Ox 99.1 F 93 18 89/68 L 97 02/12/18 17:10 02/12/18 17:10 02/12/18 17:10 02/12/18 17:10 02/12/18 17:10 Doctor's Discharge - Discharge Referrals: TIGRE PHELPS MD [Primary Care Provider] - Follow up as needed
[2018-02-12] MEDS: NORMAL SALINE 1000 ML 1,000 ML IV PRN ×2 (17:38→19:05)
[2018-02-12 17:54] LABS: ABSOLUTE EOSINOPHILS # (AUTO) 0.1 10^3/uL (0.0-0.6); ABSOLUTE LYMPHOCYTES (AUTO) 1.2 10^3/uL (0.5-4.7); ABSOLUTE MONOCYTES (AUTO) 0.8 10^3/uL (0.1-1.4); ABSOLUTE NEUT (AUTO) 7.2 10^3/uL (1.7-8.2); BASOPHILS % (AUTO) 0.4 % (0-2); EOSINOPHILS % (AUTO) 0.8 % (0-6); HEMATOCRIT 30.7 % (36.0-47.0); HEMOGLOBIN 10.3 g/dL (12.0-15.5); LYMPHOCYTES % (AUTO) 13.3 % (13-45); MEAN CORPUSCULAR HEMOGLOBIN 25.8 pg (27.0-33.4); MEAN CORPUSCULAR HGB CONC 33.5 g/dL (32.0-36.0); MEAN CORPUSCULAR VOLUME 77 fl (80-97); MONOCYTES % (AUTO) 8.8 % (3-13); PLATELET COUNT 315 10^3/uL (150-450); RED BLOOD COUNT 3.98 10^6/uL (3.72-5.28); RED CELL DISTRIBUTION WIDTH 16.2 % (11.5-14.0); SEGMENTED NEUTROPHILS % (AUTO) 76.7 % (42-78); TOTAL CELLS COUNTED % (AUTO) 100 %; WHITE BLOOD COUNT 9.4 10^3/uL (4.0-10.5)
[2018-02-12 18:00] LABS: AMORPHOUS SEDIMENT,URINE TRACE /HPF; APPEARANCE,URINE SLIGHTLY-CLOUDY; BILIRUBIN,URINE NEGATIVE (NEGATIVE); COLOR,URINE YELLOW; GLUCOSE, URINE NEGATIVE (NEGATIVE); KETONES,URINE NEGATIVE (NEGATIVE); LEUKOCYTE ESTERASE,URINE MODERATE (NEGATIVE); NITRITE,URINE POSITIVE (NEGATIVE); PROTEIN,URINE 30 mg/dL (NEGATIVE); URINE SPECIFIC GRAVITY 1.009
[2018-02-12 18:12] LABS: ALANINE AMINOTRANSFERASE 43 U/L (9-52); ALBUMIN 3.5 g/dL (3.5-5.0); ALKALINE PHOSPHATASE 91 U/L (38-126); ANION GAP 11 (5-19); ASPARTATE AMINO TRANSFERASE 35 U/L (14-36); BILIRUBIN,DIRECT 0.1 mg/dL (0.0-0.4); BILIRUBIN,TOTAL 0.1 mg/dL (0.2-1.3); BLOOD UREA NITROGEN 10 mg/dL (7-20); CALCIUM 8.8 mg/dL (8.4-10.2); CARBON DIOXIDE 27 mmol/L (22-30); CHLORIDE 101 mmol/L (98-107); GLUCOSE 81 mg/dL (75-110); LIPASE 96.6 U/L (23-300); POTASSIUM 3.8 mmol/L (3.6-5.0)
[2018-02-12] MEDS ORDERED: KETOROLAC TROMETHAMINE INJ/PF 30 MG/1 ML SDV IV ONE (18:20)
[2018-02-12] MEDS ORDERED: FAMOTIDINE INJ/PF 20 MG/2 ML SDV IV ONE (18:25)
[2018-02-12] MEDS ORDERED: LIDOCAINE 2% VISCOUS SOLN 20 ML UDCUP PO ONE ×2 (18:26→20:10)
[2018-02-12] MEDS ORDERED: MAG HYDROX/AL HYDROX/SIMETH SUSP 30 ML UDCUP PO ONE ×2 (18:26→20:10)
--- NOTE | 2018-02-12 18:26 | ER Document Report ---
ED General - General Mode of Arrival: Ambulatory Information source: Patient TRAVEL OUTSIDE OF THE [place] IN LAST 30 DAYS: No <SHELBIE TOVAR - Last Filed: 02/12/18 18:33> <SHLOMO CARDONA - Last Filed: 02/12/18 20:15> - General Chief Complaint: Urinary Problem Stated Complaint: ABDOMINAL PAIN Time Seen by Provider: 02/12/18 17:22 Notes: 32 y.o female with depression and anxiety for which she takes diazepam 10mg daily presents to the ED with LT flank pain and epigastric pain of onset two weeks ago. She describes her abd pain as a burning. Pt reports that her pain has been worsening for the past 4 days. She denies trying any medications to relieve her sx. Pt has a PSHx of cholecystectomy. (SHELBIE TOVAR) - Related Data Allergies/Adverse Reactions: Sulfa (Sulfonamide Antibiotics) Allergy (Verified 02/12/18 17:19) Hives adhesive tape Adverse Reaction (Intermediate, Verified 02/12/18 17:19) SKIN IRRITATION/REDNESS Past Medical History - General Information source: Patient - Social History Smoking Status: Current Every Day Smoker Cigarette use (# per day): Yes - 5 cigarettes per day Chew tobacco use (# tins/day): No Smoking Education Provided: Yes Frequency of alcohol use: Occasional Drug Abuse: None Occupation: [employer] Family History: Arthritis, COPD, CVA, DM, Hyperlipidemia, Hypertension, Malignancy Patient has suicidal ideation: No Patient has homicidal ideation: No Renal/ Medical History: Denies: Hx Peritoneal Dialysis Musculoskeltal Medical History: Reports Hx Musculoskeletal Trauma - shoulders dislocate, torn muscle Psychiatric Medical History: Reports: Hx Anxiety, Hx Depression Past Surgical History: Reports: Hx Adenoidectomy, Hx Cholecystectomy, Hx Oral Surgery, Hx Orthopedic Surgery - both knees, rt shoulder, Hx Tonsillectomy - Immunizations Immunizations up to date: Yes Hx Diphtheria, Pertussis, Tetanus Vaccination: Yes <SHELBIE TOVAR - Last Filed: 02/12/18 18:33> Review of Systems - Review of Systems Constitutional: No symptoms reported EENT: No symptoms reported Cardiovascular: No symptoms reported Respiratory: No symptoms reported Gastrointestinal: See HPI, Abdominal pain - epigastric, burning Genitourinary: See HPI, Flank pain - LT sided Female Genitourinary: No symptoms reported Musculoskeletal: No symptoms reported Skin: No symptoms reported Hematologic/Lymphatic: No symptoms reported Neurological/Psychological: No symptoms reported -: Yes All other systems reviewed and negative <SHELBIE TOVAR - Last Filed: 02/12/18 18:33> Physical Exam <SHELBIE TOVAR - Last Filed: 02/12/18 18:33> <SHLOMO CARDONA - Last Filed: 02/12/18 20:15> - Vital signs Vitals: Temp Pulse Resp BP Pulse Ox 99.1 F 93 18 89/68 L 97 02/12/18 17:10 02/12/18 17:10 02/12/18 17:10 02/12/18 17:10 02/12/18 17:10 - Notes Notes: Physical Exam: General: Alert, appears well. HEENT: Normocephalic. Atraumatic. PERRL. Extraocular movements intact. Oropharynx clear. Neck: Supple. Non-tender. Respiratory: No respiratory distress. Clear and equal breath sounds bilaterally. Cardiovascular: Regular rate and rhythm. Abdominal: Epigastric tenderness to palpation. No distension. Normal Bowel Sounds. Back: LT CVA tenderness to percussion. No deformity or step off. Extremities: Moves all four extremities. Upper extremities: Normal inspection. Normal ROM. Lower extremities: Normal inspection. No edema. Normal ROM. Neurological: Normal cognition. AAOx3. Normal speech. Psychological: Normal affect. Normal Mood. Skin: Warm. Dry. Normal color. (SHELBIE TOVAR) Course - Laboratory Result Diagrams: 02/12/18 17:30 02/12/18 17:30 <SHELBEI TOVAR - Last Filed: 02/12/18 18:33> - Laboratory Result Diagrams: 02/12/18 17:30 02/12/18 17:30 <SHLOMO CARDONA - Last Filed: 02/12/18 20:15> - Re-evaluation Re-evalutation: 02/12/18 20:10 Patient reports the GI cocktail did help epigastric pain for a while, is starting to get painful again. She is belching and states it makes it feel better. (SHLOMO CARDONA) - Vital Signs Vital signs: Temp Pulse Resp BP Pulse Ox 99.1 F 93 26 H 106/65 95 02/12/18 17:10 02/12/18 17:10 02/12/18 20:01 02/12/18 20:00 02/12/18 20:01 - Laboratory Laboratory results interpreted by me: 02/12/18 02/12/18 02/12/18 17:30 17:30 17:30 Hgb 10.3 L Hct 30.7 L MCV 77 L MCH 25.8 L RDW 16.2 H Total Bilirubin 0.1 L Total Protein 6.0 L Urine Protein 30 H Urine Blood SMALL H Urine Nitrite POSITIVE H Urine Urobilinogen 4.0 H Ur Leukocyte Esterase MODERATE H Discharge <SHELBIE TOVAR - Last Filed: 02/12/18 18:33> <SHLOMO CARDONA - Last Filed: 02/12/18 20:15> - Discharge Clinical Impression: Pyelonephritis GERD (gastroesophageal reflux disease) Qualifiers: Esophagitis presence: esophagitis presence not specified Qualified Code(s): K21.9 - Gastro-esophageal reflux disease without esophagitis Hypotension Qualifiers: Hypotension type: unspecified hypotension type Qualified Code(s): I95.9 - Hypotension, unspecified Condition: Stable Disposition: HOME, SELF-CARE Additional Instructions: Pyelonephritis: Your evaluation shows evidence of pyelonephritis. This is an infection in the kidney. Typical symptoms are fever, pain in the flank, pain on urination, and frequent urination. Many cases of pyelonephritis can be treated at home. Hospital care may be necessary for patients who are very ill, or elderly or . Pyelonephritis is treated with antibiotics. Be sure to take all the medication as prescribed. Drink plenty of liquids (about three quarts per day) . You may take acetaminophen for fever. You should feel significantly improved within two days. You should have a recheck of your urine in about one week to insure that the infection is gone. Return for a re-examination if your symptoms worsen in any way -- such as high fever, shaking chills, severe weakness or dizziness, severe pain, or inability to pass your urine. Reflux Disease (GERD): Gastro-Esophageal Reflux Disease (GERD) is caused by stomach acid refluxing back up into the esophagus. The valve at the end of the esophagus may be weak. This is common in persons with a hiatal hernia. GERD symptoms can include indigestion, chest pain, heartburn, or food "sticking." Certain foods, alcohol, and aspirin can make GERD worse. Treatment depends on the severity. Usually, antacids or acid-suppressing medicines are used. When the esophagus is acutely inflamed, the physician will often prescribe membrane-protective drugs such as Carafate. Some patients benefit from medication such as Reglan that tightens the valve at the top of the stomach. Avoid those foods that bring on your symptoms. For many people, these foods are coffee, chocolate, onions, garlic, and carbonated drinks. Don't use alcohol, aspirin, caffeine, or tobacco. Don't eat late at night -- within 4 hours of bedtime. Don't over-eat. If necessary, elevate the head of your bed about 4 inches so that stomach acid will not roll up into your esophagus. Call the doctor if you develop severe chest pain, inability to swallow fluids, fever, or worsening symptoms. Start the antibiotic prescription as prescribed tomorrow. Drink plenty of fluids. Take Prilosec OTC once daily. Take antacids for the heartburn symptoms as needed. Take Tylenol for pain or fever as needed. Eat a bland diet for the next few days. Follow-up with your doctor if not improving. RETURN TO THE EMERGENCY ROOM IF ANY NEW OR WORSENING SYMPTOMS. Prescriptions: Ciprofloxacin HCl [Cipro 750 mg Tablet] 750 mg PO BID #14 tablet Referrals: TIGRE PHELPS MD [Primary Care Provider] - Follow up as needed Serena Attestation: 02/12/18 19:07 I personally performed the services described in the documentation, reviewed and edited the documentation which was dictated to the scribe in my presence, and it accurately records my words and actions. (SHLOMO CARDONA) Scribe Documentation - Scribe Written by Serena:: Serena Ayala 02/12/18 1830 acting as scribe for :: Ara <SHELBIE TOVAR - Last Filed: 02/12/18 18:33>
[2018-02-12] MEDS ORDERED: CEFTRIAXONE 1 GM/D5W RTU 1 GM/50 ML RTUPB IV ONE (20:00)
[2018-02-12] MEDS ORDERED: CIPROFLOXACIN HCL 750 MG TABLET PO ONE (20:12)
[2018-02-12 20:56] VITALS: BP 117/73
== END 2018-02-12 20:45 | disposition home or self-care (01) ==
LOC: ER 17:06
DX: N12 Tubulo-interstitial nephritis, not specified as acute or chronic (principal); K21.9 Gastro-esophageal reflux disease without esophagitis; I95.9 Hypotension, unspecified; F32.9 Major depressive disorder, single episode, unspecified; F41.9 Anxiety disorder, unspecified; Z79.899 Other long term (current) drug therapy; Z90.49 Acquired absence of other specified parts of digestive tract; Z88.2 Allergy status to sulfonamides; F17.210 Nicotine dependence, cigarettes, uncomplicated
CPT/HCPCS: 99283; 96361; 96375; 96365; 36415; 87040; 87086; 83690; 85025; 81025; 87088; 80053; 81001; 87186; S0119; J3490 ×3; J1885; J7030; S0028; J0696

== ENCOUNTER 2018-02-18 07:03 | Emergency (ER) | payer MEDICAID ==
[2018-02-18] MEDS ORDERED: HYDROCODONE/ACETAMINOPHEN 5-325 MG TABLET PO ONE (07:40)
[2018-02-18] MEDS ORDERED: ONDANSETRON 4 MG TAB.RAPDIS PO ONE (07:40)
[2018-02-18 08:33] LABS: APPEARANCE,URINE SLIGHTLY-CLOUDY; BILIRUBIN,URINE NEGATIVE (NEGATIVE); COLOR,URINE YELLOW; GLUCOSE, URINE NEGATIVE (NEGATIVE); KETONES,URINE NEGATIVE (NEGATIVE); LEUKOCYTE ESTERASE,URINE TRACE (NEGATIVE); NITRITE,URINE NEGATIVE (NEGATIVE); PROTEIN,URINE NEGATIVE (NEGATIVE); URINE SPECIFIC GRAVITY 1.011; UROBILINOGEN,URINE NEGATIVE mg/dL (<2.0)
--- NOTE | 2018-02-18 08:49 | ER Document Report ---
ED GI/ - General Chief Complaint: Urinary Frequency Stated Complaint: URINARY SYMPTONS Time Seen by Provider: 02/18/18 07:30 Mode of Arrival: Ambulatory Information source: Patient Notes: Patient is a 32 year old female who presents to the ER today for right flank pain after being diagnosed with a urinary tract infection 2 weeks ago, continuing to have burning with urination. Patient admits to feeling hot and cold and sweating but has not taken her temperature to know if she has had a fever or not. Patient states that she is currently on Cipro which she is about to finish today but started having right flank pain 2 days ago. She denies any blood in her urine, denies . TRAVEL OUTSIDE OF THE [place] IN LAST 30 DAYS: No - Related Data Allergies/Adverse Reactions: Sulfa (Sulfonamide Antibiotics) Allergy (Verified 02/18/18 07:05) Hives adhesive tape Adverse Reaction (Intermediate, Verified 02/18/18 07:05) SKIN IRRITATION/REDNESS Past Medical History - General Information source: Patient - Social History Smoking Status: Current Every Day Smoker Frequency of alcohol use: None Drug Abuse: None Family History: Arthritis, COPD, CVA, DM, Hyperlipidemia, Hypertension, Malignancy Patient has suicidal ideation: No Patient has homicidal ideation: No - Past Medical History Cardiac Medical History: Denies: Hx Coronary Artery Disease, Hx Heart Attack, Hx Hypertension Pulmonary Medical History: Denies: Hx Asthma, Hx Bronchitis, Hx COPD, Hx Pneumonia Neurological Medical History: Denies: Hx Cerebrovascular Accident, Hx Seizures Renal/ Medical History: Denies: Hx Peritoneal Dialysis Musculoskeltal Medical History: Denies Hx Arthritis, Reports Hx Musculoskeletal Trauma - shoulders dislocate, torn muscle Psychiatric Medical History: Reports: Hx Anxiety, Hx Depression Past Surgical History: Reports: Hx Adenoidectomy, Hx Cholecystectomy, Hx Oral Surgery, Hx Orthopedic Surgery - both knees, rt shoulder, Hx Tonsillectomy. Denies: Hx Hysterectomy - Immunizations Immunizations up to date: Yes Hx Diphtheria, Pertussis, Tetanus Vaccination: Yes Review of Systems - Review of Systems Constitutional: See HPI EENT: No symptoms reported Cardiovascular: No symptoms reported Respiratory: No symptoms reported Gastrointestinal: No symptoms reported Genitourinary: See HPI Female Genitourinary: No symptoms reported Musculoskeletal: No symptoms reported Skin: No symptoms reported Hematologic/Lymphatic: No symptoms reported Neurological/Psychological: No symptoms reported Physical Exam - Vital signs Vitals: Temp Pulse Resp BP Pulse Ox 97.7 F 101 H 14 113/58 L 97 02/18/18 07:20 02/18/18 07:20 02/18/18 07:20 02/18/18 07:20 02/18/18 07:20 - Notes Notes: PHYSICAL EXAMINATION: GENERAL: Uncomfortable appearing, but in no acute distress. HEAD: Atraumatic, normocephalic. EYES: Pupils equal round and reactive to light, extraocular movements intact, sclera anicteric, conjunctiva are normal. NECK: Normal range of motion, supple without lymphadenopathy LUNGS: CTAB and equal. No wheezes rales or rhonchi. HEART: Regular rate and rhythm without murmurs ABDOMEN: Soft, no tenderness. No guarding, no rebound BACK: no vertebral tenderness, normal ROM GI/: Right CVA tenderness EXTREMITIES: Normal range of motion, no pitting edema. No cyanosis. NEUROLOGICAL: Cranial nerves grossly intact. Normal sensory/motor exams. PSYCH: Normal mood, normal affect. SKIN: Warm, Dry, normal turgor, no rashes or lesions noted Course - Re-evaluation Re-evalutation: 02/18/18 08:47 Urinalysis reveals small leukocytes and 5 white blood cells, will place patient on Keflex, urine cultures pending at this time. - Vital Signs Vital signs: Temp Pulse Resp BP Pulse Ox 98.0 F 69 16 104/54 L 99 02/18/18 09:00 02/18/18 09:00 02/18/18 09:00 02/18/18 09:00 02/18/18 09:00 - Laboratory Laboratory results interpreted by me: 02/18/18 07:31 Ur Leukocyte Esterase TRACE H Urine Ascorbic Acid 40 H Discharge - Discharge Clinical Impression: UTI (urinary tract infection) Qualifiers: Urinary tract infection type: site unspecified Hematuria presence: without hematuria Qualified Code(s): N39.0 - Urinary tract infection, site not specified Condition: Stable Disposition: HOME, SELF-CARE Instructions: Cephalexin ([facility]), Urinary Tract Infection ([facility]) Additional Instructions: Return immediately for any new or worsening symptoms. Follow up with primary care provider, call tomorrow to make followup appointment. Drink plenty of fluids. Prescriptions: Cephalexin Monohydrate [Keflex 500 mg Capsule] 500 mg PO BID 7 Days #14 capsule Ondansetron [Zofran Odt 4 mg Tablet] 1 - 2 tab PO Q4H PRN #30 tab.rapdis PRN Reason: For Nausea/Vomiting Referrals: TIGRE PHELPS MD [Primary Care Provider] - Follow up as needed
[2018-02-18 09:01] VITALS: BP 104/54
== END 2018-02-18 09:02 | disposition home or self-care (01) ==
LOC: ER 07:03
DX: N39.0 Urinary tract infection, site not specified (principal); R35.0 Frequency of micturition; R10.9 Unspecified abdominal pain; R30.9 Painful micturition, unspecified; R61 Generalized hyperhidrosis; F17.200 Nicotine dependence, unspecified, uncomplicated
CPT/HCPCS: 99283; 87086; 81025; 81001; S0119

== ENCOUNTER 2018-04-24 11:35 | Emergency (ER) | payer MEDICAID ==
[2018-04-24 11:41] VITALS: BP 118/76
--- NOTE | 2018-04-24 12:08 | ER Document Report ---
ED Medical Screen (RME) - General Chief Complaint: Pain All Over Stated Complaint: BACK PAIN, VOMITING Time Seen by Provider: 04/24/18 12:07 Notes: 32 years old female with a history of anxiety taking Valium as needed basis presents today with bilateral flank pain dysuria and frequency. And feeling nervous losing weight, and generally feeling anxious. On examination-she was tearing, seems to be having anxiety. TRAVEL OUTSIDE OF THE [place] IN LAST 30 DAYS: No - Related Data Allergies/Adverse Reactions: Sulfa (Sulfonamide Antibiotics) Allergy (Verified 04/24/18 11:40) Hives adhesive tape Adverse Reaction (Intermediate, Verified 04/24/18 11:40) SKIN IRRITATION/REDNESS Past Medical History - Social History Family history: Reviewed & Not Pertinent - Past Medical History Cardiac Medical History: Denies: Hx Coronary Artery Disease, Hx Heart Attack, Hx Hypertension Pulmonary Medical History: Denies: Hx Asthma, Hx Bronchitis, Hx COPD, Hx Pneumonia Neurological Medical History: Denies: Hx Cerebrovascular Accident, Hx Seizures Renal/ Medical History: Denies: Hx Peritoneal Dialysis Musculoskeltal Medical History: Denies Hx Arthritis, Reports Hx Musculoskeletal Trauma - shoulders dislocate, torn muscle Psychiatric Medical History: Reports: Hx Anxiety, Hx Depression Past Surgical History: Reports: Hx Adenoidectomy, Hx Cholecystectomy, Hx Oral Surgery, Hx Orthopedic Surgery - both knees, rt shoulder, Hx Tonsillectomy. Denies: Hx Hysterectomy - Immunizations Immunizations up to date: Yes Hx Diphtheria, Pertussis, Tetanus Vaccination: Yes Physical Exam - Vital signs Vitals: Temp Pulse Resp BP Pulse Ox 98.0 F 93 18 118/76 98 04/24/18 11:40 04/24/18 11:40 04/24/18 11:40 04/24/18 11:40 04/24/18 11:40 Course - Vital Signs Vital signs: Temp Pulse Resp BP Pulse Ox 98.0 F 93 18 118/76 98 04/24/18 11:40 04/24/18 11:40 04/24/18 11:40 04/24/18 11:40 04/24/18 11:40 Doctor's Discharge - Discharge Referrals: TIGRE PHELPS MD [Primary Care Provider] - Follow up as needed
[2018-04-24 12:44] LABS: ABSOLUTE MONOCYTES (AUTO) 0.4 10^3/uL (0.1-1.4); ABSOLUTE NEUT (AUTO) 7.4 10^3/uL (1.7-8.2); BASOPHILS % (AUTO) 0.4 % (0-2); EOSINOPHILS % (AUTO) 0.3 % (0-6); HEMATOCRIT 44.5 % (36.0-47.0); HEMOGLOBIN 14.7 g/dL (12.0-15.5); LYMPHOCYTES % (AUTO) 20.2 % (13-45); MEAN CORPUSCULAR HEMOGLOBIN 27.2 pg (27.0-33.4); MEAN CORPUSCULAR VOLUME 83 fl (80-97); MONOCYTES % (AUTO) 3.7 % (3-13); PLATELET COUNT 354 10^3/uL (150-450); RED BLOOD COUNT 5.39 10^6/uL (3.72-5.28); RED CELL DISTRIBUTION WIDTH 20.2 % (11.5-14.0); SEGMENTED NEUTROPHILS % (AUTO) 75.4 % (42-78); TOTAL CELLS COUNTED % (AUTO) 100 %; WHITE BLOOD COUNT 9.9 10^3/uL (4.0-10.5)
[2018-04-24 13:07] LABS: ALANINE AMINOTRANSFERASE 37 U/L (9-52); ALBUMIN 5.2 g/dL (3.5-5.0); ALKALINE PHOSPHATASE 49 U/L (38-126); ANION GAP 13 (5-19); ASPARTATE AMINO TRANSFERASE 42 U/L (14-36); BILIRUBIN,DIRECT 0.3 mg/dL (0.0-0.4); BILIRUBIN,TOTAL 0.6 mg/dL (0.2-1.3); BLOOD UREA NITROGEN 16 mg/dL (7-20); CALCIUM 10.2 mg/dL (8.4-10.2); CARBON DIOXIDE 27 mmol/L (22-30); CHLORIDE 106 mmol/L (98-107); GLUCOSE 93 mg/dL (75-110); POTASSIUM 4.8 mmol/L (3.6-5.0); SODIUM 146.1 mmol/L (137-145); TOTAL PROTEIN 8.8 g/dL (6.3-8.2)
--- NOTE | 2018-04-24 13:43 | ER Document Report ---
ED General - General Chief Complaint: Pain All Over Stated Complaint: BACK PAIN, VOMITING Time Seen by Provider: 04/24/18 12:07 Mode of Arrival: Ambulatory Information source: Patient Notes: 32-year-old female with anxiety presents with complaint of dysuria, urinary frequency and back pain that started 1 week prior to arrival. Patient admits to associated nausea, mild abdominal discomfort. She denies any vaginal discharge, sexual activity. Patient's last menstrual period is was a proximally 1 year ago but she has been on the Nexplanon shot since her miscarriage. Patient reports that she has been anxious secondary to losing her job and feels unmotivated. She denies depression, suicidal ideation, homicidal ideation. She declines psychiatric evaluation at this time. TRAVEL OUTSIDE OF THE [place] IN LAST 30 DAYS: No - HPI Onset: Last week Onset/Duration: Gradual, Persistent Quality of pain: Achy Severity: Mild Associated symptoms: Nausea. denies: Chest pain, Diarrhea, Fever, Vomiting, Shortness of breath Exacerbated by: Denies Relieved by: Denies Similar symptoms previously: No Recently seen / treated by doctor: No - Related Data Allergies/Adverse Reactions: Sulfa (Sulfonamide Antibiotics) Allergy (Verified 04/24/18 11:40) Hives adhesive tape Adverse Reaction (Intermediate, Verified 04/24/18 11:40) SKIN IRRITATION/REDNESS Past Medical History - General Information source: Patient - Social History Smoking Status: Current Every Day Smoker Cigarette use (# per day): Yes - 10 Chew tobacco use (# tins/day): No Smoking Education Provided: Yes - 4 minutes of smoking cessation provided Frequency of alcohol use: None Drug Abuse: None Lives with: Family Family History: Arthritis, COPD, CVA, DM, Hyperlipidemia, Hypertension, Malignancy Patient has suicidal ideation: No Patient has homicidal ideation: No - Past Medical History Cardiac Medical History: Denies: Hx Coronary Artery Disease, Hx Heart Attack, Hx Hypertension Pulmonary Medical History: Denies: Hx Asthma, Hx Bronchitis, Hx COPD, Hx Pneumonia Neurological Medical History: Denies: Hx Cerebrovascular Accident, Hx Seizures Renal/ Medical History: Denies: Hx Peritoneal Dialysis GI Medical History: Reports: Hx Gastroesophageal Reflux Disease Musculoskeletal Medical History: Denies Hx Arthritis, Reports Hx Musculoskeletal Trauma - shoulders dislocate, torn muscle Psychiatric Medical History: Reports: Hx Anxiety, Hx Depression Past Surgical History: Reports: Hx Adenoidectomy, Hx Cholecystectomy, Hx Oral Surgery, Hx Orthopedic Surgery - both knees, rt shoulder, Hx Tonsillectomy. Denies: Hx Hysterectomy - Immunizations Immunizations up to date: Yes Hx Diphtheria, Pertussis, Tetanus Vaccination: Yes Review of Systems - Review of Systems Notes: REVIEW OF SYSTEMS: CONSTITUTIONAL : Denies fever, chills, or sweats. Denies recent illness. Denies weight loss, recent hospitalizations. EENT: Denies visual changes, eye pain. Denies nasal or sinus congestion or discharge. Denies sore throat, oral lesions, difficulty swallowing. CARDIOVASCULAR: Denies chest pain. Denies palpitations. Denies lower extremity edema. RESPIRATORY: Denies cough, cold, or chest congestion. Denies shortness of breath, wheezing. GASTROINTESTINAL: Denies abdominal pain or distention. Denies nausea, vomiting , or diarrhea. Denies blood in vomitus, stools, or per rectum. Denies black, tarry stools. Denies constipation. GENITOURINARY: Denies difficulty urinating, blood in urine, or vaginal discharge. MUSCULOSKELETAL: Denies neck pain or stiffness. Denies joint pain or swelling. SKIN: Denies rash, lesions or sores. HEMATOLOGIC : Denies easy bruising or bleeding. LYMPHATIC: Denies swollen glands. NEUROLOGICAL: Denies confusion or altered mental status. Denies passing out or loss of consciousness. Denies dizziness or lightheadedness. Denies headache. Denies weakness or paralysis. Denies problems difficulty with ambulation, slurred speech. Denies sensory loss, numbness, or tingling. Denies seizures. PSYCHIATRIC: Denies anxiety or stress. Denies depression, suicidal ideation, or homicidal ideation. Denies visual or auditory hallucinations. Physical Exam - Vital signs Vitals: Temp Pulse Resp BP Pulse Ox 98.0 F 93 18 118/76 98 04/24/18 11:40 04/24/18 11:40 04/24/18 11:40 04/24/18 11:40 04/24/18 11:40 - Notes Notes: PHYSICAL EXAMINATION: GENERAL: Well-appearing, well-nourished and in no acute distress. HEAD: Atraumatic, normocephalic. EYES: Pupils equal round and reactive to light, extraocular movements intact, conjunctiva are normal. ENT: Nares patent, oropharynx clear without exudates. Moist mucous membranes. NECK: Normal range of motion, supple without lymphadenopathy LUNGS: Breath sounds clear to auscultation bilaterally and equal. No wheezes rales or rhonchi. HEART: Regular rate and rhythm without murmurs ABDOMEN: Soft, nontender, nondistended abdomen. No guarding, no rebound. No masses appreciated. Female : deferred Musculoskeletal: Normal range of motion, no pitting or edema. No cyanosis. NEUROLOGICAL: Cranial nerves grossly intact. Normal speech, normal gait. Normal sensory, motor exams PSYCH: Tearful. Denies suicidal, homicidal ideation. Denies depression. SKIN: Warm, Dry, normal turgor, no rashes or lesions noted. Course - Re-evaluation Re-evalutation: Laboratory 04/24/18 04/24/18 12:24 12:24 WBC 9.9 RBC 5.39 H Hgb 14.7 Hct 44.5 MCV 83 MCH 27.2 MCHC 33.0 RDW 20.2 H Plt Count 354 Seg Neutrophils % 75.4 Lymphocytes % 20.2 Monocytes % 3.7 Eosinophils % 0.3 Basophils % 0.4 Absolute Neutrophils 7.4 Absolute Lymphocytes 2.0 Absolute Monocytes 0.4 Absolute Eosinophils 0.0 Absolute Basophils 0.0 Sodium 146.1 H Potassium 4.8 Chloride 106 Carbon Dioxide 27 Anion Gap 13 BUN 16 Creatinine 0.76 Est GFR ( Amer) > 60 Est GFR (Non-Af Amer) > 60 Glucose 93 Calcium 10.2 Total Bilirubin 0.6 Direct Bilirubin 0.3 Neonat Total Bilirubin Not Reportable Neonat Direct Bilirubin Not Reportable Neonat Indirect Bili Not Reportable AST 42 H ALT 37 Alkaline Phosphatase 49 Total Protein 8.8 H Albumin 5.2 H 04/24/18 13:45 32-year-old female presents with complaint of anxiety, dysuria, flank pain. Vital signs reviewed upon arrival and were within normal limits. Prior to laboratory results patient is requesting discharge because she is hungry although she states that she has not been eating and she is nauseous. She was asked to stay but declines and left without completion of her exam. - Vital Signs Vital signs: Temp Pulse Resp BP Pulse Ox 98.0 F 93 18 118/76 98 04/24/18 11:40 04/24/18 11:40 04/24/18 11:40 04/24/18 11:40 04/24/18 11:40 - Laboratory Result Diagrams: 04/24/18 12:24 04/24/18 12:24 Laboratory results interpreted by me: 04/24/18 04/24/18 12:24 12:24 RBC 5.39 H RDW 20.2 H Sodium 146.1 H AST 42 H Total Protein 8.8 H Albumin 5.2 H Discharge - Discharge Clinical Impression: Dysuria, Anxiety Disposition: AGAINST MEDICAL ADVICE Instructions: Flank Pain ([facility]) Referrals: TIGRE PHELPS MD [Primary Care Provider] - Follow up as needed
== END 2018-04-24 13:46 | disposition left against medical advice (07) ==
LOC: ER 11:35
DX: R30.0 Dysuria (principal); F41.9 Anxiety disorder, unspecified; R35.0 Frequency of micturition; M54.9 Dorsalgia, unspecified; R11.2 Nausea with vomiting, unspecified; R10.9 Unspecified abdominal pain; F17.210 Nicotine dependence, cigarettes, uncomplicated
CPT/HCPCS: 36415; 80053; 85025; 99283; 99406

== ENCOUNTER 2018-05-22 06:23 | Emergency (ER) | payer MEDICAID ==
[2018-05-22 06:39] VITALS: BP 132/86
--- NOTE | 2018-05-22 07:18 | ER Document Report ---
ED Extremity Problem, Upper - General TRAVEL OUTSIDE OF THE [place] IN LAST 30 DAYS: No - HPI Patient complains to provider of: Pain Where: Home Pain Level: 2 - General Chief Complaint: Shoulder Injury Stated Complaint: SHOULDER INJURY Time Seen by Provider: 05/22/18 06:28 Notes: 32-year-old female to the emergency department for evaluation of possible shoulder dislocation. History of cervical dislocation on the right. Surgery in the past. States this happened yesterday. No numbness tingling or loss of sensation of the hand or arm. (SEGUN NICOLE) - Related Data Allergies/Adverse Reactions: Sulfa (Sulfonamide Antibiotics) Allergy (Verified 04/24/18 11:40) Hives adhesive tape Adverse Reaction (Intermediate, Verified 04/24/18 11:40) SKIN IRRITATION/REDNESS Past Medical History - General Information source: Patient - Social History Smoking Status: Current Every Day Smoker Chew tobacco use (# tins/day): No Frequency of alcohol use: None Drug Abuse: None Lives with: Alone Family History: Arthritis, COPD, CVA, DM, Hyperlipidemia, Hypertension, Malignancy Patient has suicidal ideation: No Patient has homicidal ideation: No - Past Medical History Cardiac Medical History: Denies: Hx Coronary Artery Disease, Hx Heart Attack, Hx Hypertension Pulmonary Medical History: Denies: Hx Asthma, Hx Bronchitis, Hx COPD, Hx Pneumonia Neurological Medical History: Denies: Hx Cerebrovascular Accident, Hx Seizures Renal/ Medical History: Denies: Hx Peritoneal Dialysis GI Medical History: Reports: Hx Gastroesophageal Reflux Disease Musculoskeletal Medical History: Denies Hx Arthritis, Reports Hx Musculoskeletal Trauma - shoulders dislocate, torn muscle Psychiatric Medical History: Reports: Hx Anxiety, Hx Depression Past Surgical History: Reports: Hx Adenoidectomy, Hx Cholecystectomy, Hx Oral Surgery, Hx Orthopedic Surgery - both knees, rt shoulder, Hx Tonsillectomy. Denies: Hx Hysterectomy - Immunizations Immunizations up to date: Yes Hx Diphtheria, Pertussis, Tetanus Vaccination: Yes Review of Systems - Review of Systems Notes: Constitutional: denies: Chills, Diaphoresis, Fever, Malaise, Weakness EENT: denies: Eye discharge, Blurred vision, Tearing, Double vision, Nose congestion, Nose discharge, Throat swelling, Mouth pain Cardiovascular: denies: Palpitations, Heart racing, Orthopnea, Dyspnea, Chest pain Respiratory: denies: Cough, Hurts to breathe, Wheezing, Shortness of breath Gastrointestinal: denies: Abdominal pain, Diarrhea, Nausea, Vomiting, Black stools, bright red blood in stool Genitourinary: denies: Burning, Dysuria, Discharge, Frequency, Flank pain, Hematuria Musculoskeletal: Right shoulder, right arm pain. Hematologic/Lymphatic: denies: Anemia, Easy bleeding, Easy bruising, Blood clots Neurological/Psychological: denies: Confusion, Dementia, Depression, Loss of consciousness Skin: No lesions, no masses, no skin breakdown, no abscesses (SEGUN NICOLE) Physical Exam - Vital signs Interpretation: Normal - General General appearance: Appears well, Alert - HEENT Head: Normocephalic, Atraumatic Eyes: Normal Pupils: PERRL - Respiratory Respiratory status: No respiratory distress Chest status: Nontender Breath sounds: Normal Chest palpation: Normal - Cardiovascular Rhythm: Regular Heart sounds: Normal auscultation Murmur: No - Abdominal Inspection: Normal Distension: No distension Bowel sounds: Normal Tenderness: Nontender Organomegaly: No organomegaly - Back Back: Normal, Nontender - Extremities General upper extremity: Normal inspection, Nontender, Normal color, Normal ROM , Normal temperature General lower extremity: Normal inspection, Nontender, Normal color, Normal ROM , Normal temperature, Normal weight bearing. No: Too's sign - Neurological Neuro grossly intact: Yes Cognition: Normal Orientation: AAOx4 [place] Coma Scale Eye Opening: Spontaneous [place] Coma Scale Verbal: Oriented [place] Coma Scale Motor: Obeys Commands [place] Coma Scale Total: 15 Speech: Normal Motor strength normal: LUE, RUE, LLE, RLE Sensory: Normal - Psychological Associated symptoms: Normal affect, Normal mood - Skin Skin Temperature: Warm Skin Moisture: Dry Skin Color: Normal - Vital signs Vitals: Temp Pulse Resp BP Pulse Ox 97.4 F 105 H 28 H 132/86 H 97 05/22/18 06:38 05/22/18 06:38 05/22/18 06:38 05/22/18 06:38 05/22/18 06:38 - Vital Signs Vital signs: Temp Pulse Resp BP Pulse Ox 97.4 F 105 H 28 H 132/86 H 97 05/22/18 06:38 05/22/18 06:38 05/22/18 06:38 05/22/18 06:38 05/22/18 06:38 Discharge - Discharge Clinical Impression: Recurrent dislocation, right shoulder Right shoulder pain Qualifiers: Chronicity: acute Qualified Code(s): M25.511 - Pain in right shoulder Condition: Stable Disposition: HOME, SELF-CARE Instructions: Shoulder Dislocation ([facility]), Sling as Treatment ([facility]) Additional Instructions: Rest, Ice, Compression, Elevation Use sling as directed Tylenol/ibuprofen as needed Light stretches daily Reduction technique if needed in the near future Moist heat and massage may help F/u with your PCP in 5-7 days for a recheck Schedule an appointment with orthopedics for further evaluation and management Return to the ED with any worsening symptoms and/or development of fever, headache, chest pain, palpitations, syncope, shortness of breath, trouble breathing, abdominal pain, n/v/d, muscle weakness/paralysis, numbness/tingling, swelling, redness, or other worsening symptoms that are concerning to you. Forms: Elevated Blood Pressure, Smoking Cessation Education Referrals: TIGRE PHELPS MD [Primary Care Provider] - Follow up as needed [facility] [Provider Group] - Follow up in 1 week
--- NOTE | 2018-05-22 07:18 | RADIOLOGY REPORT (SQ) ---
EXAM DESCRIPTION: XR SHOULDER 2 OR MORE VIEWS COMPLETED DATE/TME: 05/22/2018 00:00 CLINICAL HISTORY: 32 years Female, pain COMPARISON: None. Findings: Partial anterior dislocation/subluxation of the right glenohumeral joint. Bones, joints, and soft tissues of the RIGHT XR SHOULDER 2 VIEWS appear otherwise intact. IMPRESSION: Partial anterior dislocation/subluxation of the right glenohumeral joint.
--- NOTE | 2018-05-22 07:47 | RADIOLOGY REPORT (SQ) ---
EXAM DESCRIPTION: XR SHOULDER 1 VIEW COMPLETED DATE/TME: 05/22/2018 07:17 CLINICAL HISTORY: 32 years Female, reduction COMPARISON: Same day. FINDINGS: 1 images demonstrate interval reduction near-anatomic alignment of the previously described dislocation site. IMPRESSION: Fracture follow-up.
[2018-05-22] MEDS ORDERED: ACETAMINOPHEN 325 MG TABLET PO ONE (07:49)
== END 2018-05-22 08:04 | disposition home or self-care (01) ==
LOC: ER 06:23
DX: M24.411 Recurrent dislocation, right shoulder (principal); M25.511 Pain in right shoulder
CPT/HCPCS: 99283; 73020; 73030; J3490

== ENCOUNTER 2018-06-24 14:01 | Emergency (ER) | payer MEDICAID ==
[2018-06-24] MEDS ORDERED: ONDANSETRON HCL INJ/PF 4 MG/2 ML SDV IV ONE (14:31)
[2018-06-24] MEDS ORDERED: KETOROLAC TROMETHAMINE INJ/PF 30 MG/1 ML SDV IV ONE (14:31)
--- NOTE | 2018-06-24 14:41 | ER Document Report ---
ED General - General Mode of Arrival: Ambulatory Information source: Patient TRAVEL OUTSIDE OF THE [place] IN LAST 30 DAYS: No <BLANCA SEXTON - Last Filed: 06/24/18 14:56> <SHLOMO CARDONA - Last Filed: 06/24/18 15:49> - General Chief Complaint: Probable Seizure Stated Complaint: SEIZURE Time Seen by Provider: 06/24/18 14:13 Notes: Patient is a 32 year old female with anxiety and depression presents to the emergency department complaining of right posterior shoulder pain onset approximately 1 hour ago. Patient states she has a history of right shoulder pain and had surgery on 04/27/2016 in attempt to correct the pain. Patient states her right arm "twitches and will occasionally fall out of socket" after which she is able to place it back in. She states today she believes her arm fell out of her socket and she has been unable to fully put it back in place. Patient is currently prescribed Valium 10 mg 4x a day and Tramadol 100 mg 4x a day. Patient states her LMP was in September after a miscarriage. She is currently on the Depo shot but missed her dose for . (BLANCA SEXTON) The patient does admit to having run out of her Valium. She was not due to run out for another 2-3 days. (SHLOMO CARDONA) - Related Data Allergies/Adverse Reactions: Sulfa (Sulfonamide Antibiotics) Allergy (Verified 06/24/18 14:13) Hives adhesive tape Adverse Reaction (Intermediate, Verified 06/24/18 14:13) SKIN IRRITATION/REDNESS Past Medical History - General Information source: Patient - Social History Smoking Status: Current Every Day Smoker Frequency of alcohol use: Occasional Drug Abuse: None Family History: Arthritis, COPD, CVA, DM, Hyperlipidemia, Hypertension, Malignancy Patient has suicidal ideation: No Patient has homicidal ideation: No GI Medical History: Reports: Hx Gastroesophageal Reflux Disease Musculoskeletal Medical History: Reports Hx Musculoskeletal Trauma - shoulders dislocate, torn muscle Psychiatric Medical History: Reports: Hx Anxiety, Hx Depression Past Surgical History: Reports: Hx Adenoidectomy, Hx Cholecystectomy, Hx Oral Surgery, Hx Orthopedic Surgery - both knees, rt shoulder, Hx Tonsillectomy - Immunizations Immunizations up to date: Yes Hx Diphtheria, Pertussis, Tetanus Vaccination: Yes <BLANCA SEXTON - Last Filed: 06/24/18 14:56> Review of Systems - Review of Systems Constitutional: No symptoms reported EENT: No symptoms reported Cardiovascular: No symptoms reported Respiratory: No symptoms reported Gastrointestinal: No symptoms reported Genitourinary: No symptoms reported Female Genitourinary: No symptoms reported Musculoskeletal: See HPI Skin: No symptoms reported Hematologic/Lymphatic: No symptoms reported Neurological/Psychological: No symptoms reported -: Yes All other systems reviewed and negative <BLANCA SEXTON - Last Filed: 06/24/18 14:56> Physical Exam - General General appearance: Appears well, Alert In distress: None - HEENT Head: Normocephalic, Atraumatic Eyes: Normal Conjunctiva: Normal Extraocular movements intact: Yes Pupils: PERRL Mucous membranes: Normal Neck: Normal - Respiratory Respiratory status: No respiratory distress Chest status: Nontender Breath sounds: Normal Chest palpation: Normal - Cardiovascular Rhythm: Regular Heart sounds: Normal auscultation Murmur: No Friction rub: No Gallop: None auscultated - Abdominal Inspection: Normal Distension: No distension Bowel sounds: Normal Tenderness: Nontender Organomegaly: No organomegaly - Back Back: Normal - Extremities General upper extremity: Normal ROM General lower extremity: Normal ROM Shoulder: Other - Right shoulder does not appear dislocated although it is tender to palpation posteriorly. Patient is able to abduct, adduct, extend and flex right shoulder without difficulty. She is demonstrating various strategies she has learned to put her shoulder back in place. - Neurological Neuro grossly intact: Yes Cognition: Normal Orientation: AAOx4 [place] Coma Scale Eye Opening: Spontaneous [place] Coma Scale Verbal: Oriented [place] Coma Scale Motor: Obeys Commands Cruz Coma Scale Total: 15 Speech: Normal - Psychological Associated symptoms: Normal affect, Normal mood - Skin Skin Temperature: Warm Skin Moisture: Dry Skin Color: Normal <BLANCA SEXTON - Last Filed: 06/24/18 14:56> - Vital signs Vitals: Resp Pulse Ox 10 L 100 06/24/18 14:07 06/24/18 14:07 Course <BLANCA SEXTON - Last Filed: 06/24/18 14:56> - Diagnostic Test Radiology reviewed: Image reviewed, Reports reviewed - Right shoulder is not dislocated. <SHLOMO CARDONA - Last Filed: 06/24/18 15:49> - Re-evaluation Re-evalutation: 06/24/18 15:48 At discharge the patient continues to complain of nausea and dizziness and wants more medicine for nausea. I suspect she really wants the Valium that she ran out of early due to taking more than was prescribed. She had just recently gotten some Zofran. We will give her a dose of Reglan and then discharge. I have emphasized to her she needs to follow-up with her primary care provider for the medication she has run out of, and with her orthopedic surgeon for her chronic right shoulder pain. (SHLOMO CARDONA) - Vital Signs Vital signs: Temp Pulse Resp BP Pulse Ox 22 H 118/76 100 06/24/18 15:45 06/24/18 15:45 06/24/18 15:45 Discharge <BLANCA SEXTON - Last Filed: 06/24/18 14:56> <SHLOMO CARDONA - Last Filed: 06/24/18 15:49> - Discharge Clinical Impression: Has run out of medications Right shoulder pain Qualifiers: Chronicity: chronic Qualified Code(s): M25.511 - Pain in right shoulder Condition: Stable Disposition: HOME, SELF-CARE Additional Instructions: The x-ray of your shoulder does not show any dislocation or subluxation today. You should use 1 of your slings to support and stabilize the shoulder when you get home. Use ice packs to the posterior shoulder where it hurts the most. Continue your regular medications. Call [facility] for a follow-up appointment with your orthopedic doctors. Follow-up with your primary care provider for your regular medications that you have run out of. RETURN TO THE EMERGENCY ROOM IF ANY NEW OR WORSENING SYMPTOMS. Referrals: TIGRE PHELPS MD [Primary Care Provider] - Follow up as needed [facility] [Provider Group] - Follow up as needed Scribe Attestation: 06/24/18 14:53 I personally performed the services described in the documentation, reviewed and edited the documentation which was dictated to the scribe in my presence, and it accurately records my words and actions. (SHLOMO CARDONA) Scribe Documentation - Scribe Written by Antwonibe:: Serena Soliman, 06/24/2018 14:55 acting as scribe for :: Ara <BLANCA SEXTON - Last Filed: 06/24/18 14:56>
[2018-06-24] MEDS ORDERED: NORMAL SALINE 1000 ML 1,000 ML IV ONE (15:09)
--- NOTE | 2018-06-24 15:28 | RADIOLOGY REPORT (SQ) ---
EXAM DESCRIPTION: SHOULDER RIGHT 2 OR MORE VIEWS COMPLETED DATE/TIME: 06/24/2018 3:07 pm REASON FOR STUDY: R shoulder pain, chronically dislocating shoulder COMPARISON: Right shoulder films 02/28/2016, 01/06/2017, 12/22/2017, 05/22/2018 NUMBER OF VIEWS: Three views. TECHNIQUE: Internal rotation, external rotation, and Y view images acquired of the right shoulder. LIMITATIONS: None. FINDINGS: MINERALIZATION: Normal. BONES: No acute fracture or dislocation. No worrisome bone lesions. JOINTS: No glenohumeral dislocation. No acromioclavicular joint widening. VISUALIZED LUNGS AND RIBS: No pneumothorax. No rib fracture. SOFT TISSUES: No radiopaque foreign body. OTHER: No other significant finding. IMPRESSION: No acute findings TECHNICAL DOCUMENTATION: JOB ID: [id number] [employer]- All Rights Reserved Reading location - IP/workstation name: [email or web address]
[2018-06-24 15:47] VITALS: BP 118/76
[2018-06-24] MEDS ORDERED: METOCLOPRAMIDE HCL INJ/PF 10 MG/2 ML SDV IV ONE (15:48)
== END 2018-06-24 16:01 | disposition home or self-care (01) ==
LOC: ER 14:01
DX: M25.511 Pain in right shoulder (principal); R11.0 Nausea; R42 Dizziness and giddiness; F17.200 Nicotine dependence, unspecified, uncomplicated; Z90.49 Acquired absence of other specified parts of digestive tract; Z88.2 Allergy status to sulfonamides
CPT/HCPCS: 99284; 96361; 96374; 96375; 73030; J1885; J2765; J2405; J7030

== ENCOUNTER 2018-10-02 14:57 | Emergency (ER) | payer MEDICAID ==
--- NOTE | 2018-10-02 15:44 | ER Document Report ---
Addendum entered and electronically signed by TEE FIGUEROA PA-C 10/04/18 09:37: Course - Vital Signs Vital signs: Temp Pulse Resp BP Pulse Ox 98.0 F 65 18 118/65 100 10/03/18 08:29 10/03/18 08:29 10/03/18 08:29 10/03/18 08:29 10/03/18 08:29 - Laboratory Result Diagrams: 10/02/18 15:42 10/02/18 15:42 Laboratory results interpreted by me: 10/02/18 10/02/18 10/02/18 15:42 15:42 16:00 WBC 11.9 H RDW 14.2 H Absolute Neutrophils 8.9 H Glucose 113 H Urine Protein 100 H Urine Blood SMALL H Urine Bilirubin SMALL H Urine Urobilinogen 4.0 H Salicylates < 1.0 L Acetaminophen < 10 L Addendum entered and electronically signed by MILAD ORTEGA MD 10/03/18 10:16: Discharge - Discharge Clinical Impression: Substance abuse Condition: Stable Disposition: HOME, SELF-CARE Additional Instructions: You have been evaluated both medical and behavioral health teams have been deemed appropriate for discharge. You are encouraged to follow-up with outpatient substance abuse treatment. You have been provided resource list of local providers for both mental health and substance abuse which includes mobile crisis contact information. AMPHETAMINE / METHAMPHETAMINE ABUSE: Amphetamines are addicting stimulants. Amphetamines overstimulate the nervous system and give a false feeling of power and mastery. These drugs may be obtained as prescription pills for weight loss, narcolepsy, or attention-deficit disorder. More often they're bought as an illegal street drug, methamphetamine (crank, crystal, speed). Using amphetamines repeatedly can lead to serious medical problems including malnutrition, severe depression, and paranoia. It can take increasing amounts to feel good. Eventually, there will be a "burn out." When you go off amphetamines there is a period of depression that may last for weeks or even months. High doses of amphetamines can cause seizures, confusion, hallucinations, delusions, high blood pressure, muscle damage, heart damage, or sudden . Many times these deadly complications occur even with "normal" doses. Injection of amphetamines is risky for developing abscesses, endocarditis (heart infection), pneumonia, and AIDS. Withdrawal from amphetamines often causes anxiety, depression, and drug cravings. Some users become paranoid and psychotic. There may be cramps, nausea, and vomiting. Many treatment programs are available, but you must make the decision to quit. Medication can be prescribed to control the symptoms of amphetamine toxicity (beta blockers or benzodiazepines). Withdrawal symptoms may require tranquilizers. FOLLOW-UP CARE: If you experience worsening or a significant change in your symptoms, notify the physician immediately or return to the Emergency Department at any time for re- evaluation. Referrals: [facility] [Outside] - Follow up in 3-5 days [facility] [Outside] - Follow up as needed DIMAS CHINCHILLA MD [ACTIVE STAFF] - Follow up as needed Addendum entered and electronically signed by KAYKAY RIVERA LCSWA 10/03/18 10:04: Discharge - Discharge Clinical Impression: Substance abuse Condition: Stable Disposition: HOME, SELF-CARE Additional Instructions: You have been evaluated both medical and behavioral health teams have been deemed appropriate for discharge. You are encouraged to follow-up with outpatient substance abuse treatment. You have been provided resource list of local providers for both mental health and substance abuse which includes mobile crisis contact information. AMPHETAMINE / METHAMPHETAMINE ABUSE: Amphetamines are addicting stimulants. Amphetamines overstimulate the nervous system and give a false feeling of power and mastery. These drugs may be obtained as prescription pills for weight loss, narcolepsy, or attention-deficit disorder. More often they're bought as an illegal street drug, methamphetamine (crank, crystal, speed). Using amphetamines repeatedly can lead to serious medical problems including malnutrition, severe depression, and paranoia. It can take increasing amounts to feel good. Eventually, there will be a "burn out." When you go off amphetamines there is a period of depression that may last for weeks or even months. High doses of amphetamines can cause seizures, confusion, hallucinations, delusions, high blood pressure, muscle damage, heart damage, or sudden . Many times these deadly complications occur even with "normal" doses. Injection of amphetamines is risky for developing abscesses, endocarditis (heart infection), pneumonia, and AIDS. Withdrawal from amphetamines often causes anxiety, depression, and drug cr avings. Some users become paranoid and psychotic. There may be cramps, nausea, and vomiting. Many treatment programs are available, but you must make the decision to quit. Medication can be prescribed to control the symptoms of amphetamine toxicity (beta blockers or benzodiazepines). Withdrawal symptoms may require tranquilizers. FOLLOW-UP CARE: If you experience worsening or a significant change in your symptoms, notify the physician immediately or return to the Emergency Department at any time for re- evaluation. Referrals: DIMAS CHINCHILLA MD [ACTIVE STAFF] - Follow up as needed [facility] [Outside] - Follow up as needed [facility] [Outside] - Follow up in 3-5 days Original Note: ED General - General Chief Complaint: Psych Problem Stated Complaint: PSYCH Time Seen by Provider: 10/02/18 15:18 Primary Care Provider: DIMAS CHINCHILLA MD [ACTIVE STAFF] - Follow up as needed TRAVEL OUTSIDE OF THE [place] IN LAST 30 DAYS: No - HPI Notes: Patient is a 33-year-old female with a history of anxiety and depression who takes Valium 4 times a day who presents to the emergency department by EMS for possible hallucinations and smoking meth yesterday. Patient states that she does have bilateral ear pain and a mild headache but otherwise feels well. She has been eating and drinking without difficulty. She is urinating normally and having normal bowel movements. She reportedly took her drugs to the police station. No other concerns or complaints at this time. Denies any fever, head injury, neck pain, changes in vision/speech/hearing, URI, sore throat, chest pain, palpitations, syncope, cough, shortness of breath, wheeze, dyspnea, abdominal pain, nausea/vomiting/diarrhea, urinary retention, dysuria, hematuria, loss of control of bowel or bladder, numbness/tingling, saddle anesthesia, muscle paralysis/weakness, or rash. No SI/HI. - Related Data Allergies/Adverse Reactions: Sulfa (Sulfonamide Antibiotics) Allergy (Verified 06/24/18 14:13) Hives adhesive tape Adverse Reaction (Intermediate, Verified 06/24/18 14:13) SKIN IRRITATION/REDNESS Past Medical History - Social History Smoking Status: Current Every Day Smoker Frequency of alcohol use: Rare Drug Abuse: Marijuana, Methamphetamine Family History: Arthritis, COPD, CVA, DM, Hyperlipidemia, Hypertension, Malignancy Patient has suicidal ideation: No Patient has homicidal ideation: No - Past Medical History Cardiac Medical History: Denies: Hx Coronary Artery Disease, Hx Heart Attack, Hx Hypertension Pulmonary Medical History: Denies: Hx Asthma, Hx Bronchitis, Hx COPD, Hx Pneumonia Neurological Medical History: Denies: Hx Cerebrovascular Accident, Hx Seizures Renal/ Medical History: Denies: Hx Peritoneal Dialysis GI Medical History: Reports: Hx Gastroesophageal Reflux Disease Musculoskeletal Medical History: Denies Hx Arthritis, Reports Hx Musculoskeletal Trauma - shoulders dislocate, torn muscle Psychiatric Medical History: Reports: Hx Anxiety, Hx Depression Past Surgical History: Reports: Hx Adenoidectomy, Hx Cholecystectomy, Hx Oral Surgery, Hx Orthopedic Surgery - both knees, rt shoulder, Hx Tonsillectomy. Denies: Hx Hysterectomy - Immunizations Immunizations up to date: Yes Hx Diphtheria, Pertussis, Tetanus Vaccination: Yes Review of Systems - Review of Systems -: Yes All other systems reviewed and negative Physical Exam - Vital signs Vitals: Temp Pulse Resp BP Pulse Ox 98.1 F 117 H 20 123/77 100 10/02/18 15:03 10/02/18 15:03 10/02/18 15:03 10/02/18 15:03 10/02/18 15:03 - Notes Notes: PHYSICAL EXAMINATION: GENERAL: Well-appearing, well-nourished and in no acute distress. Alert and oriented, but not to time. HEAD: Atraumatic, normocephalic. EYES: Pupils equal round and reactive to light, extraocular movements intact, sclera anicteric, conjunctiva are normal. ENT: EAC clear b/l. TM's intact b/l without erythema, fluid, or perforation. Nares patent and without discharge. oropharynx clear without exudates. No tonsilar hypertrophy or erythema. Moist mucous membranes. No sinus tenderness. NECK: Normal range of motion, supple without lymphadenopathy LUNGS: Breath sounds clear to auscultation bilaterally and equal. No wheezes rales or rhonchi. HEART: Regular rate and rhythm without murmurs, rubs, gallops. ABDOMEN: Soft, nontender, nondistended abdomen. No guarding, no rebound. No masses appreciated. Normal bowel sounds present. No CVA tenderness bilaterally. Musculoskeletal: FROM to passive/active. Strength 5+/5. Extremities: No cyanosis, clubbing, or edema b/l. Peripheral pulses 2+. Capillary refill less than 3 seconds. NEUROLOGICAL: Cranial nerves grossly intact. Normal speech, normal gait. Normal sensory, motor exams PSYCH: Labile emotions/mood- goes from really happy to really sad. Pt is not tracking the conversation well and will stare off during discussion. She does seem to be easily excitable as well. SKIN: Warm, Dry, normal turgor, no rashes or lesions noted. Course - Re-evaluation Re-evalutation: 10/02/18 15:43 Pt will be evaluated by our psychology team. I do suspect that she may continue to have some of the drugs in her system based on her labile emotions. Labs have been ordered. Pt may be placed on petition but we will wait for med recs by our psychology team. She does not have any SI/HI. 10/02/18 16:57 Pt has been evaluated by our Psychology team and they recommend haldol one time dose, congentin daily, and thorazine PRN Q6. She will be held for petition on a 24 hour hold. - Vital Signs Vital signs: Temp Pulse Resp BP Pulse Ox 98.1 F 117 H 20 123/77 100 10/02/18 15:03 10/02/18 15:03 10/02/18 15:03 10/02/18 15:03 10/02/18 15:03 - Laboratory Result Diagrams: 10/02/18 15:42 10/02/18 15:42 Laboratory results interpreted by me: 10/02/18 10/02/18 15:42 15:42 WBC 11.9 H RDW 14.2 H Absolute Neutrophils 8.9 H Glucose 113 H Salicylates < 1.0 L Acetaminophen < 10 L Discharge - Discharge Clinical Impression: Substance abuse Condition: Stable Disposition: PSYCH HOSP/UNIT Referrals: DIMAS CHINCHILLA MD [ACTIVE STAFF] - Follow up as needed
[2018-10-02 16:03] LABS: ABSOLUTE BASOPHILS # (AUTO) 0.1 10^3/uL (0.0-0.2); ABSOLUTE EOSINOPHILS # (AUTO) 0.1 10^3/uL (0.0-0.6); ABSOLUTE LYMPHOCYTES (AUTO) 2.1 10^3/uL (0.5-4.7); ABSOLUTE MONOCYTES (AUTO) 0.7 10^3/uL (0.1-1.4); ABSOLUTE NEUT (AUTO) 8.9 10^3/uL (1.7-8.2); BASOPHILS % (AUTO) 0.6 % (0-2); EOSINOPHILS % (AUTO) 0.6 % (0-6); HEMATOCRIT 39.1 % (36.0-47.0); HEMOGLOBIN 13.3 g/dL (12.0-15.5); LYMPHOCYTES % (AUTO) 17.3 % (13-45); MEAN CORPUSCULAR HEMOGLOBIN 29.7 pg (27.0-33.4); MEAN CORPUSCULAR HGB CONC 34.1 g/dL (32.0-36.0); MEAN CORPUSCULAR VOLUME 87 fl (80-97); MONOCYTES % (AUTO) 6.2 % (3-13); PLATELET COUNT 362 10^3/uL (150-450); RED BLOOD COUNT 4.49 10^6/uL (3.72-5.28); RED CELL DISTRIBUTION WIDTH 14.2 % (11.5-14.0); SEGMENTED NEUTROPHILS % (AUTO) 75.3 % (42-78); TOTAL CELLS COUNTED % (AUTO) 100 %; WHITE BLOOD COUNT 11.9 10^3/uL (4.0-10.5)
[2018-10-02 16:21] LABS: ALANINE AMINOTRANSFERASE 26 U/L (9-52); ALBUMIN 4.5 g/dL (3.5-5.0); ALKALINE PHOSPHATASE 71 U/L (38-126); ANION GAP 9 (5-19); ASPARTATE AMINO TRANSFERASE 24 U/L (14-36); BILIRUBIN,DIRECT 0.2 mg/dL (0.0-0.4); BILIRUBIN,TOTAL 0.4 mg/dL (0.2-1.3); BLOOD UREA NITROGEN 8 mg/dL (7-20); CALCIUM 9.5 mg/dL (8.4-10.2); CARBON DIOXIDE 28 mmol/L (22-30); CHLORIDE 104 mmol/L (98-107); GLUCOSE 113 mg/dL (75-110); SODIUM 140.7 mmol/L (137-145)
[2018-10-02 16:23] LABS: ACETAMINOPHEN < 10 ug/mL (10-30); ALCOHOL < 10 mg/dL (NONE DETECTED)
[2018-10-02 16:24] LABS: SALICYLATE < 1.0 mg/dL (2.0-20.0)
[2018-10-02] MEDS ORDERED: CHLORPROMAZINE HCL INJ 25 MG/1 ML AMPULE IM PRN (16:52)
[2018-10-02] MEDS ORDERED: HALOPERIDOL LACTATE INJ 5 MG/1 ML VIAL IM ONE (16:52)
[2018-10-02] MEDS ORDERED: BENZTROPINE MESYLATE INJ 2 MG/2 ML AMPULE IM SCH (16:53)
--- NOTE | 2018-10-02 17:14 | PSYCHOLOGICAL NOTE ---
Psych Note - Psych Note Date seen by psych provider: 10/02/18 Psych Note: Reason for Consult: AMS Patient is a 33-year-old female with a history of anxiety and depression who takes Valium 4 times a day who presents to the emergency department by EMS for possible hallucinations and smoking meth yesterday. Medication recommendations per [facility]'s contracted psychiatrist Dr. Ann MARINO are as follows Haldol 10 mg IM once Cogentin 1 mg daily Thorazine 50 mg every 6 hours PRN 292.89 (F15.222) Amphetamine Intoxication Impression\plan: Patient is recommended for [facility] petition for mental health observation overnight. Patient is presenting as if under the influence and admits to smoking meth yesterday. Patient is also noted to have handed over a crack pipe to law enforcement prior to transport to [facility] ED. Medication augmentations have been provided. Patient will be reevaluated upon sobriety. Dr. Del Real was consulted and the care management this patient; attending physicians in agreement with recommendations and disposition.
[2018-10-02 17:36] LABS: APPEARANCE,URINE SLIGHTLY-CLOUDY; BILIRUBIN,URINE SMALL (NEGATIVE); COLOR,URINE AMBER; GLUCOSE, URINE NEGATIVE (NEGATIVE); KETONES,URINE NEGATIVE (NEGATIVE); LEUKOCYTE ESTERASE,URINE NEGATIVE (NEGATIVE); NITRITE,URINE NEGATIVE (NEGATIVE); PROTEIN,URINE 100 mg/dL (NEGATIVE); URINE SPECIFIC GRAVITY 1.026
[2018-10-02 17:52] LABS: URINE BARBITURATES SCREEN NEGATIVE; URINE BENZODIAZEPINES SCREEN UNCONFIRMED POSITIVE; URINE COCAINE SCREEN NEGATIVE; URINE MARIJUANA (THC) SCREEN NEGATIVE; URINE METHADONE SCREEN NEGATIVE; URINE PHENCYCLIDINE SCREEN NEGATIVE
--- NOTE | 2018-10-03 07:58 | EKG REPORT ---
SEVERITY:- OTHERWISE NORMAL ECG - SINUS TACHYCARDIA RIGHT AXIS DEVIATION : Confirmed by: Lianna Hall MD 03-Oct-2018 07:58:01
[2018-10-03 08:29] VITALS: BP 118/65
[2018-10-03] MEDS ORDERED: HYDROXYZINE PAMOATE 50 MG CAPSULE PO ONE (09:36)
--- NOTE | 2018-10-03 09:40 | ER Document Report ---
Doctor's Note Notes: 10/03/18 09:37 Rounds: Chart reviewed and patient interviewed. Patient is being evaluated for substance abuse. Reportedly took methamphetamine. Patient has an underlying anxiety and depression. Says that she needs some Valium because she now has the shakes. Says she was only trying the meth. Vital signs are all normal. Labs show a positive benzos in the UDS. Otherwise negative. We will give the patient a Vistaril 50 mg p.o. Patient appears to be medically stable for transfer or discharge. Keri Canela MD
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
== END 2018-10-03 11:00 | disposition home or self-care (01) ==
LOC: ER 14:57
DX: F15.10 Other stimulant abuse, uncomplicated (principal); F12.10 Cannabis abuse, uncomplicated; H92.03 Otalgia, bilateral; R51 Headache; F17.200 Nicotine dependence, unspecified, uncomplicated; F41.9 Anxiety disorder, unspecified; Z79.899 Other long term (current) drug therapy; Z88.2 Allergy status to sulfonamides
CPT/HCPCS: 93005; 99285; 96372; 36415; 80307 ×4; 84703; 85025; 80053; 81001; 93010; J0515; J1630; J3490

== ENCOUNTER 2019-03-24 10:51 | Emergency (ER) | payer MEDICAID, OTHER ==
[2019-03-24] MEDS ORDERED: ACETAMINOPHEN 325 MG TABLET PO ONE (12:45)
[2019-03-24] MEDS ORDERED: CIPROFLOXACIN HCL/DEXAMETH OTIC DROP 7.5 ML AU ONE (12:45)
--- NOTE | 2019-03-24 12:53 | ER Document Report ---
HPI - HPI Patient complains to provider of: Ear pain Time Seen by Provider: 03/24/19 12:38 Pain Level: Denies Context: Patient is a 33-year-old female presents to the emergency department for bilateral ear pain. Patient states she has had this pain over the last 6 months. Patient is also complaining of a generalized cough and congestion with subjective fever. Patient's denying any respiratory distress any chest pain, nausea, vomiting, diarrhea. Patient states she does have a history of anxiety and is requesting that her diazepam be refilled. States she has "been out of it for a while." Patient's denying any other medical problems besides anxiety, admits to an allergy to sulfa. - REPRODUCTIVE Reproductive: DENIES: : Past Medical History - General Information source: Patient - Social History Smoking Status: Unknown if Ever Smoked Family History: Arthritis, COPD, CVA, DM, Hyperlipidemia, Hypertension, Malignancy - Past Medical History Cardiac Medical History: Denies: Hx Coronary Artery Disease, Hx Heart Attack, Hx Hypertension Pulmonary Medical History: Denies: Hx Asthma, Hx Bronchitis, Hx COPD, Hx Pneumonia Neurological Medical History: Denies: Hx Cerebrovascular Accident, Hx Seizures Renal/ Medical History: Denies: Hx Peritoneal Dialysis GI Medical History: Reports: Hx Gastroesophageal Reflux Disease Musculoskeletal Medical History: Denies Hx Arthritis, Reports Hx Musculoskeletal Trauma - shoulders dislocate, torn muscle Psychiatric Medical History: Reports: Hx Anxiety, Hx Depression Past Surgical History: Reports: Hx Adenoidectomy, Hx Cholecystectomy, Hx Oral Surgery, Hx Orthopedic Surgery - both knees, rt shoulder, Hx Tonsillectomy. Denies: Hx Hysterectomy - Immunizations Immunizations up to date: Yes Hx Diphtheria, Pertussis, Tetanus Vaccination: Yes Vertical Provider Document - CONSTITUTIONAL Agree With Documented VS: Yes Notes: GENERAL: Alert, interacts well. No acute distress. HEAD: Normocephalic, atraumatic. EYES: Pupils equal, round, and reactive to light. Extraocular movements intact. ENT: Oral mucosa moist, tongue midline. Nares patent, TM's intact, nonerythematous, nonbulging bilaterally. Bilateral canals erythematous minor swelling noted no obvious debris. Tragal tenderness noted bilaterally. No mastoid erythema, pain, swelling noted bilaterally. NECK: Full range of motion. Supple. Trachea midline. No lymphadenopathy appreciated LUNGS: Clear to auscultation bilaterally, no wheezes, rales, or rhonchi. No respiratory distress. HEART: Regular rate and rhythm. No murmur ABDOMEN: Soft, non-tender. Non-distended. Bowel sounds present in all 4 quadrants. EXTREMITIES: Moves all 4 extremities spontaneously. No edema, normal radial and dorsalis pedis pulses bilaterally. No cyanosis. BACK: no cervical, thoracic, lumbar midline tenderness. No saddle anesthesia, normal distal neurovascular exam. NEUROLOGICAL: Alert and oriented x3. Normal speech. cranial nerves II through XII grossly intact PSYCH: Normal affect, normal mood. SKIN: Warm, dry, normal turgor. No rashes or lesions noted. - INFECTION CONTROL TRAVEL OUTSIDE OF THE [place] IN LAST 30 DAYS: No Course - Re-evaluation Re-evalutation: 03/24/19 12:52 Patient voices that she has been putting "all sorts of concoctions" in both ears for generalized symptomatic pain relief. Patient is unable to tell me what she has been putting in either ear. Discussed with her that it does appear that she has irritation to bilateral canals and should be treated with antibiotic eardrops. Discussed that she should stop using whatever medication she has been using and only use prescribed medications. Patient voices understanding. I have also discussed that I am unable to refill her diazepam in the emergency room. Discussed close follow-up with primary care provider. At this time will discharge with return precautions and follow-up recommendations. Verbal discharge instructions given a the bedside and opportunity for questions given. Medication warnings reviewed. Patient is in agreement with this plan and has verbalized understanding of return precautions and the need for primary care follow-up in the next 24-72 hours. This medical record was dictated with voice recognizing software. There may be grammatical, syntax errors that are unintended. - Vital Signs Vital signs: Temp Pulse Resp BP Pulse Ox 97.9 F 105 H 18 120/73 97 03/24/19 11:04 03/24/19 11:04 03/24/19 11:04 03/24/19 11:04 03/24/19 11:04 Discharge - Discharge Clinical Impression: Otitis externa Qualifiers: Otitis externa type: unspecified type Chronicity: acute Laterality: unspecified laterality Qualified Code(s): H60.509 - Unspecified acute noninfective otitis externa, unspecified ear Condition: Stable Disposition: HOME, SELF-CARE Instructions: Use of Ear Drops ([facility]), Otitis Externa ([facility]) Additional Instructions: As we discussed you have been seen and treated in the emergency department for a outer ear infection in both ears. This is treated with antibiotic eardrops. Please use them as prescribed. Please also make sure you take [id number] Tylenol or Motrin for generalized pain. Please follow-up with your primary care provider in the next 24 to 48 hours. Please return to the emergency room for any concerns. Prescriptions: Ciprofloxacin HCl/Dexameth [Ciprodex Otic Suspension 7.5 ml Bottle] 3 drop AU BID 7 Days #1 bottle Forms: Return to Work Referrals: TIGRE PHELPS MD [Primary Care Provider] - Follow up as needed
[2019-03-24 13:21] VITALS: BP 120/71
== END 2019-03-24 13:24 | disposition home or self-care (01) ==
LOC: ER 10:51
DX: H60.509 Unspecified acute noninfective otitis externa, unspecified ear (principal); H92.03 Otalgia, bilateral; R05 Cough; Z88.2 Allergy status to sulfonamides
CPT/HCPCS: 99283; J3490 ×2